=== PATIENT | female | born 1970 | race American Indian/Alaskan Native ===

== ENCOUNTER 2016-10-12 17:21 | Inpatient (IN) | payer MEDICARE, OTHER ==
[2016-10-12] MEDS ORDERED: Albuterol-Ipratrop 3 mg / 0.5 (3 ml) UD ONE ×2 (17:37→18:47)
[2016-10-12] MEDS ORDERED: Albuterol-Ipratrop 3 mg / 0.5 (3 ml) UD INH STA (17:48)
[2016-10-12] MEDS: Albuterol-Ipratrop 3 mg / 0.5 (3 ml) UD IH SCH ×2 (18:40→18:56)
[2016-10-12 18:44] LABS: BASO # 0.2 K/uL (0.0-0.2); BASO % 0.9 % (0.0-2.0); EOS % 0.1 % (0.0-4.0); HEMATOCRIT 39.4 % (34.0-47.0); LYMPH # 4.4 K/uL (1.0-4.3); LYMPH % 24.3 % (20.0-40.0); MEAN CORPUSCULAR HEMOGLOBIN 31.9 pg (27.0-31.0); MEAN CORPUSCULAR HGB CONC 33.9 g/dL (33.0-37.0); MEAN PLATELET VOLUME 7.6 fL (7.2-11.7); MONO # 0.4 K/uL (0.0-0.8); MONO % 2.3 % (0.0-10.0); RED CELL DISTRIBUTION WIDTH 13.8 % (11.5-14.5); WHITE BLOOD COUNT 18.2 K/uL (4.8-10.8)
[2016-10-12 18:57] LABS: CHLORIDE 102 mmol/L (98-107)
[2016-10-12 18:58] LABS: POTASSIUM 3.4 mmol/L (3.6-5.2); SODIUM 138 mmol/L (132-148)
[2016-10-12 18:59] LABS: AST/SGOT 19 U/L (14-36); BILIRUBIN,TOTAL 0.5 mg/dL (0.2-1.3); CARBON DIOXIDE 26 mmol/L (22-30); GFR AFRICAN-AMERICAN > 60
[2016-10-12 19:00] LABS: ALB/GLOB RATIO 1.5 (1.0-2.1); ALKALINE PHOSPHATASE 75 U/L (38-126); ALT/SGPT 24 U/L (9-52); BLOOD UREA NITROGEN 11 mg/dL (7-17); CALCIUM 8.6 mg/dl (8.6-10.4); GLUCOSE,RANDOM 119 mg/dL (65-105); TOTAL PROTEIN 6.5 g/dL (6.3-8.3)
[2016-10-12] MEDS ORDERED: Magnesium Sulfate 1 gm in D5W 1 GM/100 ML BAG IVPB STA (20:05)
--- NOTE | 2016-10-12 20:16 | C.PDOC ---
Time Seen by Provider: 10/12/16 18:28 Chief Complaint (Nursing): Shortness Of Breath History Per: Patient Onset/Duration Of Symptoms: Days (few) Current Symptoms Are (Timing): Still Present Exacerbating Factor(s): Coughing Current Respiratory Medications: See Home Med List Severity: Moderate Associated Symptoms: Productive Cough Reports Recently: Treated By A Physician Additional History Per: Prior Records Past Medical History Reviewed: Historical Data, Nursing Documentation, Vital Signs Vital Signs: Last Vital Signs Temp 98 F 10/12/16 17:39 Pulse 73 10/12/16 18:40 Resp 22 10/12/16 18:52 BP 118/76 10/12/16 17:39 Pulse Ox 100 10/12/16 20:16 - Medical History PMH: Asthma, Bronchitis Family History: States: Unknown Family Hx - Social History Hx Tobacco Use: Yes Hx Alcohol Use: Yes Hx Substance Use: No - Immunization History Hx Tetanus Toxoid Vaccination: No Hx Influenza Vaccination: No Hx Pneumococcal Vaccination: Yes Review Of Systems Except As Marked, All Systems Reviewed And Found Negative. Constitutional: Negative for: Fever Cardiovascular: Positive for: Chest Pain (upon coughing) Respiratory: Positive for: Cough, Shortness of Breath, Sputum, Wheezing Gastrointestinal: Negative for: Vomiting, Abdominal Pain Musculoskeletal: Negative for: Neck Pain, Back Pain, Leg Pain Skin: Negative for: Rash Neurological: Negative for: Weakness, Numbness, Seizures, Altered Mental Status Physical Exam - Physical Exam Appears: In Acute Distress (mild) Skin: Normal Color, Warm, Dry, No Rash Head: Atraumatic, Normacephalic Eye(s): bilateral: PERRL, EOMI Neck: Normal ROM, Supple Cardiovascular: Rhythm Regular Respiratory: No Accessory Muscle Use, Wheezing Gastrointestinal/Abdominal: Soft, No Tenderness Back: No CVA Tenderness Extremity: Normal ROM, No Pedal Edema, No Calf Tenderness Neurological/Psych: Oriented x3, Normal Motor, Normal Sensation ED Course And Treatment - Laboratory Results Result Diagrams: 10/12/16 18:38 10/12/16 18:38 Interpretation Of Abnormal: Leukocytosis, otherwise unremarkable Urine POC: Negative ECG: Interpreted By Me, Viewed By Me ECG Rhythm: Sinus Rhythm, Nonspecific Changes Rate From EC O2 Sat by Pulse Oximetry: 100 Pulse Ox Interpretation: Normal - Radiology CXR: Interpreted by Me, Viewed By Me CXR Interpretation: Yes: No Acute Disease Progress Note: Pt is no longer in any respiratory distress, but still SOB and wheezing. Reassessment Condition: Improved Progress - Interventions Interventions:: Observation, Oxygen - Medications Administered Inhaled nebulized: Anticholinergic, Beta-2 agonist Intravenous: Corticosteroid - Data Reviewed Data Reviewed: Lab, Diagnostic imaging, EKG, Old records - Patient Status Patient status: Partially improved - Critical Care Citical Care: Excluding Proc Time Critical Care Time: 45 minutes - Continuity of Care Discussed patient case with:: Patient, ED Nurse, PMD Disposition Discussed With : David Ambrose Comment: He accepted pt on his service. Doctor Will See Patient In The: Hospital Counseled Patient/Family Regarding: Studies Performed, Diagnosis, Smoking Cessation - Disposition Disposition: HOSPITALIZED Disposition Time: 20:32 Condition: FAIR - Clinical Impression Clinical Impression: Status asthmaticus
[2016-10-12] MEDS ORDERED: Magnesium Sulfate 1 gm in D5W 1 GM/100 ML BAG IVPB ONE (20:26)
[2016-10-12] MEDS ORDERED: Azithromycin 500mg/250ML NS 500 MG/250 ML BAG IVPB STA (20:32)
--- NOTE | 2016-10-12 20:37 | RAD ---
PROCEDURE: CHEST RADIOGRAPH, 1 VIEW HISTORY: SOB COMPARISON: 02/23/2016 FINDINGS: LUNGS: Mild venous congestion. PLEURA: No pneumothorax or pleural fluid seen. CARDIOVASCULAR: Normal. OSSEOUS STRUCTURES: No significant abnormalities. VISUALIZED UPPER ABDOMEN: Normal. OTHER FINDINGS: None. IMPRESSION: Mild venous congestion.
[2016-10-12] MEDS ORDERED: Albuterol 0.083% Inhal Sol (2.5 mg/3 mL) UD IH PRN (22:54)
[2016-10-13] MEDS ORDERED: Fluticasone-Salmeterol 250-50mcg Diskus INH SCH (08:00)
[2016-10-13] MEDS: Azithromycin 500 MG in Sodium Chloride 0.9% 250 ML IVPB SCH (10:00)
[2016-10-13] MEDS: Enoxaparin 40 mg Syringe SC SCH (11:14)
[2016-10-13] MEDS: Oxycodone/Acetaminophen 5/325 mg Tab PO PRN ×2 (11:15→18:03)
[2016-10-13] MEDS ORDERED: Albuterol 0.083% Inhal Sol (2.5 mg/3 mL) UD IH SCH (12:00)
[2016-10-13] MEDS ORDERED: Promethazine/Cod 6.25mg-10mg/5ml Syr UD PO PRN (12:10)
--- NOTE | 2016-10-13 13:11 | CP.PCM.HP ---
History of Present Illness - History of Present Illness History of Present Illness: Cheif complain: cough , shortness of breath x 1 week HPI: young AA female with h/o avascular necrosisi of hip, HTN, bronchial asthama , came in with c/o cough, congestion, shortness of breath , thick sputum. Pt acme in my office and she was having respiratory distress so i admitted her in pateint Present on Admission - Present on Admission Any Indicators Present on Admission: No Past Patient History - Past Medical History & Family History Past Medical History?: Yes - Past Social History Smoking Status: Current Some Days Smoker - CARDIAC Hx Cardiac Disorders: No - PULMONARY Hx Respiratory Disorders: Yes Hx Asthma: Yes Hx Bronchitis: Yes - NEUROLOGICAL Hx Neurological Disorder: No - HEENT Hx HEENT Problems: No Other/Comment: uses eyeglasses - RENAL Hx Chronic Kidney Disease: No - ENDOCRINE/METABOLIC Hx Endocrine Disorders: No - HEMATOLOGICAL/ONCOLOGICAL Hx Blood Disorders: No - INTEGUMENTARY Hx Dermatological Problems: No - MUSCULOSKELETAL/RHEUMATOLOGICAL Hx Musculoskeletal Disorders: No Hx Falls: No - GASTROINTESTINAL Hx Gastrointestinal Disorders: No - GENITOURINARY/GYNECOLOGICAL Hx Genitourinary Disorders: No - PSYCHIATRIC Hx Psychophysiologic Disorder: No Hx Substance Use: No - SURGICAL HISTORY Hx Surgeries: Yes Hx Section: Yes Hx Orthopedic Surgery: Yes (LEFT THR) - ANESTHESIA Hx Anesthesia: Yes Hx Anesthesia Reactions: No Hx Malignant Hyperthermia: No Meds Home Medications: Home Medication List Medication Instructions Recorded Confirmed Type Amoxicillin/Clavulanate [Augmentin 1 tab PO BID #10 tab 10/17/16 Rx 875 MG-125 MG] Fluticasone Nasal [Flonase] 1 spr NS DAILY #1 spr 10/17/16 Rx Methylprednisolone [Medrol Dose 4 mg PO DAILY #21 mg 10/17/16 Rx Pack (21 tabs)] Allergies/Adverse Reactions: Allergies Allergy/AdvReac Type Severity Reaction Status Date / Time pantoprazole sodium Allergy Verified 02/23/16 16:47 [From Protonix] shellfish derived Allergy Verified 02/23/16 16:47 Physical Exam - Constitutional Appears: In Acute Distress Additional comments: moderate resp distress - Head Exam Additional comments: nasal congestion [place] - Eye Exam Eye Exam: EOMI, Normal appearance, PERRL Pupil Exam: NORMAL ACCOMODATION, PERRL - Respiratory Exam Respiratory Exam: Rhonchi, Wheezes - Cardiovascular Exam Cardiovascular Exam: REGULAR RHYTHM, +S1, +S2 - GI/Abdominal Exam GI & Abdominal Exam: Normal Bowel Sounds, Soft. absent: Tenderness Results - Vital Signs Recent Vital Signs: Last Vital Signs Temp 98.4 F 10/13/16 08:18 Pulse 77 10/13/16 08:18 Resp 20 10/13/16 08:18 BP 132/90 10/13/16 08:18 Pulse Ox 99 10/13/16 08:18 - Labs Result Diagrams: 10/17/16 07:24 10/17/16 07:24 Assessment & Plan (1) COPD exacerbation Status: Acute (2) Exacerbation of asthma Status: Acute Priority: High (3) Sinusitis Status: Acute
--- NOTE | 2016-10-13 18:28 | CARD ---
APPROVED REPORT EKG Measurement Heart [id number] <Conclusion> Normal sinus rhythm Minimal voltage criteria for LVH, may be normal variant Borderline ECG
[2016-10-13] MEDS: Albuterol-Ipratrop 3 mg / 0.5 (3 ml) UD INH SCH (20:02)
--- NOTE | 2016-10-13 23:57 | CP.PCM.PN ---
Subjective - Date & Time of Evaluation Date of Evaluation: 10/13/16 Time of Evaluation: 12:06 - Subjective Subjective: seen and examined, is coughing and wheezing but she feels better, less short of breath Objective - Vital Signs/Intake and Output Vital Signs (last 24 hours): Temp Pulse Resp BP Pulse Ox 98.1 F 56 L 20 161/78 H 97 10/13/16 19:14 10/13/16 22:00 10/13/16 19:14 10/13/16 22:00 10/13/16 19:14 Intake and Output: 10/13/16 10/14/16 18:59 06:59 Intake Total 500 400 Balance 500 400 - Medications Medications: Current Medications Albuterol/Ipratropium (Duoneb 3 Mg/0.5 Mg (3 Ml) Ud) 3 ml INH RQ6 [facility] Last Admin: 10/13/16 20:02 Dose: 3 ml Enoxaparin Sodium (Lovenox) 40 mg SC DAILY [facility] Last Admin: 10/13/16 11:14 Dose: 40 mg Famotidine (Pepcid) 20 mg PO DAILY [facility] Last Admin: 10/13/16 13:43 Dose: 20 mg Guaifenesin (Robitussin) 200 mg PO Q4H PRN PRN Reason: Cough and congestion Azithromycin 500 mg/ Sodium (Chloride) 250 mls @ 250 mls/hr IVPB DAILY [facility] Last Admin: 10/13/16 10:00 Dose: 250 mls/hr Methylprednisolone (Solu-Medrol) 60 mg IV Q12 [facility] Last Admin: 10/13/16 22:05 Dose: 60 mg Montelukast Sodium (Singulair) 10 mg PO HS [facility] Last Admin: 10/13/16 22:05 Dose: 10 mg Nicotine (Nicoderm Cq) 1 patch TD DAILY [facility] Last Admin: 10/13/16 13:43 Dose: 1 patch Oxycodone/Acetaminophen (Percocet 5/325 Mg Tab) 1 tab PO QID PRN PRN Reason: Pain Stop: 10/15/16 22:55 Last Admin: 10/13/16 18:03 Dose: 1 tab Fluticasone/Salmeterol (Advair Diskus 250/50) 1 puff INH RQ12 [facility] Sennosides (Senokot Tab) 8.6 mg PO DAILY [facility] Last Admin: 10/13/16 11:14 Dose: 8.6 mg Zolpidem Tartrate (Ambien) 5 mg PO HS PRN PRN Reason: Insomnia Last Admin: 10/13/16 23:02 Dose: 5 mg - Constitutional Appears: Well - Head Exam Head Exam: ATRAUMATIC, NORMAL INSPECTION, NORMOCEPHALIC - Eye Exam Eye Exam: EOMI, Normal appearance - Respiratory Exam Respiratory Exam: Decreased Breath Sounds, Wheezes - Cardiovascular Exam Cardiovascular Exam: REGULAR RHYTHM, +S1, +S2. absent: Murmur - GI/Abdominal Exam GI & Abdominal Exam: Soft, Normal Bowel Sounds. absent: Tenderness Assessment and Plan (1) COPD exacerbation Status: Acute (2) Exacerbation of asthma Assessment & Plan: nebulizer advair salmadrol antitussives monitor pt Status: Acute
[2016-10-14] MEDS: Albuterol-Ipratrop 3 mg / 0.5 (3 ml) UD INH SCH ×4 (06:15→19:15)
[2016-10-14] MEDS: guaiFENesin 200 mg/10 ml Syrup UD PO PRN ×2 (10:47→17:01)
[2016-10-14] MEDS: Enoxaparin 40 mg Syringe SC SCH (10:48)
[2016-10-14] MEDS: Azithromycin 500 MG in Sodium Chloride 0.9% 250 ML IVPB SCH (10:50)
[2016-10-14] MEDS: Oxycodone/Acetaminophen 5/325 mg Tab PO PRN (21:56)
[2016-10-14] MEDS: guaiFENesin 600 mg ER Tab PO SCH (22:26)
--- NOTE | 2016-10-14 22:48 | CP.PCM.PN ---
Subjective - Date & Time of Evaluation Date of Evaluation: 10/14/16 Time of Evaluation: 12:07 - Subjective Subjective: Pt still coughing and congested, pt is on medical treatment Ct sinuses ordered to rule out sinusitis Objective - Vital Signs/Intake and Output Vital Signs (last 24 hours): Temp Pulse Resp BP Pulse Ox 97.9 F 66 20 165/70 H 98 10/14/16 16:00 10/14/16 16:00 10/14/16 16:00 10/14/16 16:00 10/14/16 16:00 - Medications Medications: Current Medications Albuterol/Ipratropium (Duoneb 3 Mg/0.5 Mg (3 Ml) Ud) 3 ml INH RQ6 [facility] Last Admin: 10/14/16 19:15 Dose: 3 ml Enoxaparin Sodium (Lovenox) 40 mg SC DAILY [facility] Last Admin: 10/14/16 10:48 Dose: 40 mg Famotidine (Pepcid) 20 mg PO DAILY [facility] Last Admin: 10/14/16 10:48 Dose: 20 mg Guaifenesin (Robitussin) 200 mg PO Q4H PRN PRN Reason: Cough and congestion Last Admin: 10/14/16 17:01 Dose: 200 mg Guaifenesin (Mucinex La) 600 mg PO BID [facility] Last Admin: 10/14/16 22:26 Dose: 600 mg Azithromycin 500 mg/ Sodium (Chloride) 250 mls @ 250 mls/hr IVPB DAILY [facility] Last Admin: 10/14/16 10:50 Dose: 250 mls/hr Methylprednisolone (Solu-Medrol) 60 mg IV Q12 [facility] Last Admin: 10/14/16 21:55 Dose: 60 mg Montelukast Sodium (Singulair) 10 mg PO HS [facility] Last Admin: 10/14/16 21:55 Dose: 10 mg Nicotine (Nicoderm Cq) 1 patch TD DAILY [facility] Last Admin: 10/14/16 10:48 Dose: 1 patch Oxycodone/Acetaminophen (Percocet 5/325 Mg Tab) 1 tab PO QID PRN PRN Reason: Pain Stop: 10/15/16 22:55 Last Admin: 10/14/16 21:56 Dose: 1 tab Fluticasone/Salmeterol (Advair Diskus 250/50) 1 puff INH RQ12 [facility] Sennosides (Senokot Tab) 8.6 mg PO DAILY [facility] Last Admin: 10/14/16 10:48 Dose: 8.6 mg Zolpidem Tartrate (Ambien) 5 mg PO HS PRN PRN Reason: Insomnia Last Admin: 10/14/16 22:27 Dose: 5 mg - Constitutional Appears: No Acute Distress - Head Exam Head Exam: ATRAUMATIC, NORMAL INSPECTION, NORMOCEPHALIC - Eye Exam Eye Exam: EOMI, Normal appearance, PERRL Pupil Exam: NORMAL ACCOMODATION, PERRL - Respiratory Exam Respiratory Exam: Decreased Breath Sounds, Rales, Rhonchi - Cardiovascular Exam Cardiovascular Exam: +S1, +S2 - GI/Abdominal Exam GI & Abdominal Exam: Soft, Normal Bowel Sounds. absent: Tenderness Assessment and Plan (1) COPD exacerbation Status: Acute (2) Exacerbation of asthma Status: Acute (3) Sinusitis Assessment & Plan: nasal congestion post nasal drip Status: Acute
[2016-10-15] MEDS: Albuterol-Ipratrop 3 mg / 0.5 (3 ml) UD INH SCH ×4 (01:03→19:31)
[2016-10-15] MEDS: Enoxaparin 40 mg Syringe SC SCH (10:09)
[2016-10-15] MEDS: guaiFENesin 600 mg ER Tab PO SCH ×2 (10:10→17:24)
[2016-10-15] MEDS: Azithromycin 500 MG in Sodium Chloride 0.9% 250 ML IVPB SCH (10:10)
[2016-10-15] MEDS: Oxycodone/Acetaminophen 5/325 mg Tab PO PRN ×2 (10:13→17:22)
--- NOTE | 2016-10-15 10:30 | CT ---
PROCEDURE: CT SINUSES WITHOUT CONTRAST HISTORY: severe sinus pressure and head ache COMPARISON: 03/01/2016. TECHNIQUE: Contiguous axial CT images of the paranasal sinuses were obtained. Coronal and sagittal reformats were generated. Radiation dose: Total exam DLP = mGy-cm. This CT exam was performed using one or more of the following dose reduction techniques: Automated exposure control, adjustment of the mA and/or kV according to patient size, and/or use of iterative reconstruction technique. FINDINGS: FRONTAL SINUSES: Clear. ETHMOID SINUSES: Interval improvement and ethmoid air cell disease. SPHENOID SINUSES: Clear. MAXILLARY SINUSES: Resolution of acute maxillary sinusitis study apparent on the prior examination. SINUS DRAINAGE: Stable findings cornu complex disease bilaterally right greater than left. NASAL SEPTUM: No significant deviation. No destructive lesion. MASS: None. SKULL BASE: Unremarkable. TEMPORAL BONES: Middle ears and mastoid grossly unremarkable. OTHER FINDINGS: None. IMPRESSION: Resolution of maxillary sinus disease bilaterally. Interval improvement in previously identified ethmoid air cell disease. Stable 0 MU complex disease.
--- NOTE | 2016-10-15 22:54 | CP.PCM.PN ---
Subjective - Date & Time of Evaluation Date of Evaluation: 10/15/16 Time of Evaluation: 12:09 - Subjective Subjective: PT SEEN AND EXAMINED, IS LESS COUGHING AND WHEEZING Objective - Vital Signs/Intake and Output Vital Signs (last 24 hours): Temp Pulse Resp BP Pulse Ox 98.5 F 64 18 171/89 H 18 L 10/15/16 21:54 10/15/16 21:54 10/15/16 16:00 10/15/16 21:54 10/15/16 21:54 Intake and Output: 10/15/16 10/16/16 18:59 06:59 Intake Total 900 400 Balance 900 400 - Medications Medications: Current Medications Albuterol/Ipratropium (Duoneb 3 Mg/0.5 Mg (3 Ml) Ud) 3 ml INH RQ6 [facility] Last Admin: 10/15/16 19:31 Dose: 3 ml Enoxaparin Sodium (Lovenox) 40 mg SC DAILY [facility] Last Admin: 10/15/16 10:09 Dose: 40 mg Famotidine (Pepcid) 20 mg PO DAILY [facility] Last Admin: 10/15/16 10:10 Dose: 20 mg Guaifenesin (Robitussin) 200 mg PO Q4H PRN PRN Reason: Cough and congestion Last Admin: 10/14/16 17:01 Dose: 200 mg Guaifenesin (Mucinex La) 600 mg PO BID [facility] Last Admin: 10/15/16 17:24 Dose: 600 mg Azithromycin 500 mg/ Sodium (Chloride) 250 mls @ 250 mls/hr IVPB DAILY [facility] Last Admin: 10/15/16 10:10 Dose: 250 mls/hr Methylprednisolone (Solu-Medrol) 60 mg IV Q12 [facility] Last Admin: 10/15/16 21:49 Dose: 60 mg Montelukast Sodium (Singulair) 10 mg PO HS [facility] Last Admin: 10/15/16 21:48 Dose: 10 mg Nicotine (Nicoderm Cq) 1 patch TD DAILY [facility] Last Admin: 10/15/16 10:09 Dose: 1 patch Oxycodone/Acetaminophen (Percocet 5/325 Mg Tab) 1 tab PO QID PRN PRN Reason: Pain Stop: 10/15/16 22:55 Last Admin: 10/15/16 17:22 Dose: 1 tab Fluticasone/Salmeterol (Advair Diskus 250/50) 1 puff INH RQ12 [facility] Sennosides (Senokot Tab) 8.6 mg PO DAILY [facility] Last Admin: 10/15/16 10:10 Dose: 8.6 mg Zolpidem Tartrate (Ambien) 5 mg PO HS PRN PRN Reason: Insomnia Last Admin: 10/15/16 21:53 Dose: 5 mg - Constitutional Appears: No Acute Distress - Head Exam Head Exam: ATRAUMATIC, NORMAL INSPECTION, NORMOCEPHALIC - Eye Exam Eye Exam: EOMI, Normal appearance, PERRL Pupil Exam: NORMAL ACCOMODATION, PERRL - ENT Exam ENT Exam: Mucous Membranes Moist, Normal Exam - Respiratory Exam Respiratory Exam: Decreased Breath Sounds, Rales, Wheezes - Cardiovascular Exam Cardiovascular Exam: REGULAR RHYTHM, +S1, +S2. absent: Murmur Assessment and Plan (1) COPD exacerbation Status: Acute (2) Exacerbation of asthma Status: Acute (3) Sinusitis Status: Acute
[2016-10-16] MEDS: Albuterol-Ipratrop 3 mg / 0.5 (3 ml) UD INH SCH ×4 (06:25→20:19)
[2016-10-16 07:31] LABS: HEMATOCRIT 39.3 % (34.0-47.0); MEAN CELL VOLUME 94.7 fL (81.0-99.0); MEAN CORPUSCULAR HEMOGLOBIN 32.1 pg (27.0-31.0); MEAN CORPUSCULAR HGB CONC 33.9 g/dL (33.0-37.0); MEAN PLATELET VOLUME 8.3 fL (7.2-11.7); RED CELL DISTRIBUTION WIDTH 13.6 % (11.5-14.5); WHITE BLOOD COUNT 24.4 K/uL (4.8-10.8)
[2016-10-16 07:47] LABS: CHLORIDE 102 mmol/L (98-107); POTASSIUM 3.9 mmol/L (3.6-5.2); SODIUM 138 mmol/L (132-148)
[2016-10-16 07:50] LABS: BLOOD UREA NITROGEN 18 mg/dL (7-17); CALCIUM 8.5 mg/dl (8.6-10.4); CARBON DIOXIDE 26 mmol/L (22-30); GFR AFRICAN-AMERICAN > 60; GLUCOSE,RANDOM 110 mg/dL (65-105)
[2016-10-16] MEDS: Enoxaparin 40 mg Syringe SC SCH (09:54)
[2016-10-16] MEDS: guaiFENesin 600 mg ER Tab PO SCH ×2 (09:55→17:10)
[2016-10-16] MEDS: guaiFENesin 200 mg/10 ml Syrup UD PO PRN ×2 (09:55→21:41)
[2016-10-16] MEDS: Azithromycin 500 MG in Sodium Chloride 0.9% 250 ML IVPB SCH (09:55)
[2016-10-16] MEDS: Oxycodone/Acetaminophen 5/325 mg Tab PO PRN ×2 (13:27→21:42)
--- NOTE | 2016-10-16 23:30 | CP.PCM.PN ---
Subjective - Date & Time of Evaluation Date of Evaluation: 10/16/16 Time of Evaluation: 07:38 - Subjective Subjective: pt seen and examined, is less short of breath, still coughing and wheezing Objective - Vital Signs/Intake and Output Vital Signs (last 24 hours): Temp Pulse Resp BP Pulse Ox 97.9 F 71 20 144/76 97 10/16/16 15:39 10/16/16 15:39 10/16/16 15:39 10/16/16 15:39 10/16/16 15:39 - Medications Medications: Current Medications Albuterol/Ipratropium (Duoneb 3 Mg/0.5 Mg (3 Ml) Ud) 3 ml INH RQ6 [facility] Last Admin: 10/16/16 20:19 Dose: 3 ml Enoxaparin Sodium (Lovenox) 40 mg SC DAILY [facility] Last Admin: 10/16/16 09:54 Dose: 40 mg Famotidine (Pepcid) 20 mg PO DAILY [facility] Last Admin: 10/16/16 09:54 Dose: 20 mg Guaifenesin (Robitussin) 200 mg PO Q4H PRN PRN Reason: Cough and congestion Last Admin: 10/16/16 21:41 Dose: 200 mg Guaifenesin (Mucinex La) 600 mg PO BID [facility] Last Admin: 10/16/16 17:10 Dose: 600 mg Azithromycin 500 mg/ Sodium (Chloride) 250 mls @ 250 mls/hr IVPB DAILY [facility] Last Admin: 10/16/16 09:55 Dose: 250 mls/hr Ceftriaxone Sodium 1 gm/ (Sodium Chloride) 100 mls @ 100 mls/hr IVPB DAILY [facility] Last Admin: 10/16/16 18:30 Dose: 100 mls/hr Methylprednisolone (Solu-Medrol) 60 mg IV Q12 [facility] Last Admin: 10/16/16 21:42 Dose: 60 mg Montelukast Sodium (Singulair) 10 mg PO HS [facility] Last Admin: 10/16/16 21:41 Dose: 10 mg Nicotine (Nicoderm Cq) 1 patch TD DAILY [facility] Last Admin: 10/16/16 09:54 Dose: 1 patch Oxycodone/Acetaminophen (Percocet 5/325 Mg Tab) 1 tab PO Q6H PRN PRN Reason: Pain, severe (8-10) Stop: 10/19/16 12:46 Last Admin: 10/16/16 21:42 Dose: 1 tab Fluticasone/Salmeterol (Advair Diskus 250/50) 1 puff INH RQ12 [facility] Last Admin: 10/16/16 09:35 Dose: 1 puff Sennosides (Senokot Tab) 8.6 mg PO DAILY [facility] Last Admin: 10/16/16 09:54 Dose: 8.6 mg Zolpidem Tartrate (Ambien) 5 mg PO HS PRN PRN Reason: Insomnia Last Admin: 10/16/16 22:53 Dose: 5 mg - Labs Labs: 10/16/16 07:11 10/16/16 07:11 - Constitutional Appears: No Acute Distress - Head Exam Head Exam: ATRAUMATIC, NORMAL INSPECTION, NORMOCEPHALIC - Eye Exam Eye Exam: EOMI, Normal appearance, PERRL Pupil Exam: NORMAL ACCOMODATION, PERRL - Respiratory Exam Respiratory Exam: Decreased Breath Sounds, Rhonchi - Cardiovascular Exam Cardiovascular Exam: REGULAR RHYTHM, +S1, +S2. absent: Murmur - GI/Abdominal Exam GI & Abdominal Exam: Soft, Normal Bowel Sounds. absent: Tenderness - Neurological Exam Neurological Exam: Alert, Awake, CN II-XII Intact, Normal Gait, Oriented x3 - Psychiatric Exam Psychiatric exam: Normal Affect, Normal Mood Assessment and Plan (1) COPD exacerbation Status: Acute (2) Exacerbation of asthma Status: Acute (3) Sinusitis Status: Acute
[2016-10-17] MEDS: Albuterol-Ipratrop 3 mg / 0.5 (3 ml) UD INH SCH ×2 (06:13→08:48)
[2016-10-17 07:59] LABS: CHLORIDE 102 mmol/L (98-107); SODIUM 138 mmol/L (132-148)
[2016-10-17 08:02] LABS: GFR AFRICAN-AMERICAN > 60
[2016-10-17 08:03] LABS: BLOOD UREA NITROGEN 20 mg/dL (7-17); CALCIUM 8.4 mg/dl (8.6-10.4); CARBON DIOXIDE 27 mmol/L (22-30); GLUCOSE,RANDOM 104 mg/dL (65-105)
[2016-10-17 08:04] LABS: BASO # 0.1 K/uL (0.0-0.2); BASO % 0.2 % (0.0-2.0); HEMATOCRIT 40.4 % (34.0-47.0); LYMPH # 4.4 K/uL (1.0-4.3); LYMPH % 17.1 % (20.0-40.0); MEAN CELL VOLUME 93.9 fL (81.0-99.0); MEAN CORPUSCULAR HEMOGLOBIN 31.9 pg (27.0-31.0); MEAN PLATELET VOLUME 7.9 fL (7.2-11.7); MONO % 7.9 % (0.0-10.0); NRBC % 0.1 % (0.0-2.0); RED CELL DISTRIBUTION WIDTH 13.8 % (11.5-14.5); WHITE BLOOD COUNT 25.5 K/uL (4.8-10.8)
[2016-10-17] MEDS: guaiFENesin 600 mg ER Tab PO SCH (09:43)
[2016-10-17] MEDS: Enoxaparin 40 mg Syringe SC SCH (09:43)
[2016-10-17] MEDS: Oxycodone/Acetaminophen 5/325 mg Tab PO PRN (09:49)
[2016-10-17] MEDS ORDERED: MethylPREDNISolone 40 mg Vial IV SCH (10:00)
--- NOTE | 2016-10-17 12:01 | CP.PCM.PN ---
Subjective - Date & Time of Evaluation Date of Evaluation: 10/17/16 Time of Evaluation: 07:39 - Subjective Subjective: pt seen and examined, is less short of breath, still coughing and wheezing Objective - Vital Signs/Intake and Output Vital Signs (last 24 hours): Temp Pulse Resp BP Pulse Ox 97.7 F 57 L 18 169/86 H 95 10/17/16 00:28 10/17/16 00:28 10/17/16 00:28 10/17/16 00:28 10/17/16 00:28 Intake and Output: 10/17/16 10/17/16 06:59 18:59 Intake Total 600 Balance 600 - Medications Medications: Current Medications Albuterol/Ipratropium (Duoneb 3 Mg/0.5 Mg (3 Ml) Ud) 3 ml INH RQ6 [facility] Last Admin: 10/17/16 08:48 Dose: 3 ml Enoxaparin Sodium (Lovenox) 40 mg SC DAILY [facility] Last Admin: 10/17/16 09:43 Dose: 40 mg Famotidine (Pepcid) 20 mg PO DAILY [facility] Last Admin: 10/17/16 09:43 Dose: 20 mg Guaifenesin (Robitussin) 200 mg PO Q4H PRN PRN Reason: Cough and congestion Last Admin: 10/16/16 21:41 Dose: 200 mg Guaifenesin (Mucinex La) 600 mg PO BID [facility] Last Admin: 10/17/16 09:43 Dose: 600 mg Azithromycin 500 mg/ Sodium (Chloride) 250 mls @ 250 mls/hr IVPB DAILY [facility] Last Admin: 10/16/16 09:55 Dose: 250 mls/hr Ceftriaxone Sodium 1 gm/ (Sodium Chloride) 100 mls @ 100 mls/hr IVPB DAILY [facility] Last Admin: 10/17/16 09:42 Dose: 100 mls/hr Methylprednisolone (Solu-Medrol) 60 mg IV DAILY [facility] Last Admin: 10/17/16 10:05 Dose: 60 mg Montelukast Sodium (Singulair) 10 mg PO HS [facility] Last Admin: 10/16/16 21:41 Dose: 10 mg Nicotine (Nicoderm Cq) 1 patch TD DAILY [facility] Last Admin: 10/17/16 09:44 Dose: 1 patch Oxycodone/Acetaminophen (Percocet 5/325 Mg Tab) 1 tab PO Q6H PRN PRN Reason: Pain, severe (8-10) Stop: 10/19/16 12:46 Last Admin: 10/17/16 09:49 Dose: 1 tab Fluticasone/Salmeterol (Advair Diskus 250/50) 1 puff INH RQ12 [facility] Last Admin: 10/16/16 09:35 Dose: 1 puff Sennosides (Senokot Tab) 8.6 mg PO DAILY [facility] Last Admin: 10/17/16 09:43 Dose: 8.6 mg Zolpidem Tartrate (Ambien) 5 mg PO HS PRN PRN Reason: Insomnia Last Admin: 10/16/16 22:53 Dose: 5 mg - Labs Labs: 10/17/16 07:24 10/17/16 07:24 - Constitutional Appears: No Acute Distress - Head Exam Head Exam: ATRAUMATIC, NORMAL INSPECTION, NORMOCEPHALIC - Eye Exam Eye Exam: EOMI, Normal appearance, PERRL Pupil Exam: NORMAL ACCOMODATION, PERRL - Respiratory Exam Respiratory Exam: Decreased Breath Sounds, Rales, Wheezes - Cardiovascular Exam Cardiovascular Exam: REGULAR RHYTHM, +S1, +S2. absent: Murmur - GI/Abdominal Exam GI & Abdominal Exam: Soft, Normal Bowel Sounds. absent: Tenderness - Neurological Exam Neurological Exam: Alert, Awake, CN II-XII Intact, Normal Gait, Oriented x3 - Psychiatric Exam Psychiatric exam: Normal Affect, Normal Mood - Skin Skin Exam: Dry, Intact, Normal Color, Warm Assessment and Plan (1) COPD exacerbation Status: Acute (2) Exacerbation of asthma Status: Acute (3) Sinusitis Status: Acute
[2016-10-17 16:33] VITALS: BP 166/89; PULSE 68; RESP 16; TEMP 97.9; O2SAT 97
--- NOTE | 2016-10-23 00:55 | CP.PCM.DIS ---
Provider - Provider Date of Admission: 10/14/16 16:42 Attending physician: David Ambrose MD Diagnosis - Discharge Diagnosis (1) COPD exacerbation Status: Acute (2) Exacerbation of asthma Status: Acute Priority: High (3) Sinusitis Status: Acute Hospital Course - Lab Results Lab Results: Most Recent Lab Values WBC 25.5 K/uL (4.8-10.8) H 10/17/16 07:24 RBC 4.31 Mil/uL (3.80-5.20) 10/17/16 07:24 Hgb 13.8 g/dL (11.0-16.0) 10/17/16 07:24 Hct 40.4 % (34.0-47.0) 10/17/16 07:24 MCV 93.9 fL (81.0-99.0) 10/17/16 07:24 MCH 31.9 pg (27.0-31.0) H 10/17/16 07:24 MCHC 34.0 g/dL (33.0-37.0) 10/17/16 07:24 RDW 13.8 % (11.5-14.5) 10/17/16 07:24 Plt Count 365 K/uL (130-400) 10/17/16 07:24 MPV 7.9 fL (7.2-11.7) 10/17/16 07:24 Neut % (Auto) 74.8 % (50.0-75.0) 10/17/16 07:24 Lymph % (Auto) 17.1 % (20.0-40.0) L 10/17/16 07:24 [place] % (Auto) 7.9 % (0.0-10.0) 10/17/16 07:24 Eos % (Auto) 0.0 % (0.0-4.0) 10/17/16 07:24 Baso % (Auto) 0.2 % (0.0-2.0) 10/17/16 07:24 Neut # 19.1 K/uL (1.8-7.0) H 10/17/16 07:24 Lymph # 4.4 K/uL (1.0-4.3) H 10/17/16 07:24 [place] # 2.0 K/uL (0.0-0.8) H 10/17/16 07:24 Eos # 0.0 K/uL (0.0-0.7) 10/17/16 07:24 Baso # 0.1 K/uL (0.0-0.2) 10/17/16 07:24 Sodium 138 mmol/L (132-148) 10/17/16 07:24 Potassium 4.0 mmol/L (3.6-5.2) 10/17/16 07:24 Chloride 102 mmol/L (98-107) 10/17/16 07:24 Carbon Dioxide 27 mmol/L (22-30) 10/17/16 07:24 Anion Gap 13 (10-20) 10/17/16 07:24 BUN 20 mg/dL (7-17) H 10/17/16 07:24 Creatinine 0.9 MG/DL (0.7-1.2) 10/17/16 07:24 Est GFR ( Amer) > 60 10/17/16 07:24 Est GFR (Non-Af Amer) > 60 10/17/16 07:24 Random Glucose 104 mg/dL (65-105) 10/17/16 07:24 Calcium 8.4 mg/dl (8.6-10.4) L 10/17/16 07:24 Total Bilirubin 0.5 mg/dL (0.2-1.3) 10/12/16 18:38 AST 19 U/L (14-36) 10/12/16 18:38 ALT 24 U/L (9-52) 10/12/16 18:38 Alkaline Phosphatase 75 U/L (38-126) 10/12/16 18:38 Troponin I < 0.0120 ng/mL (0.00-0.120) 10/12/16 18:38 NT-Pro-B Natriuret Pep 119 pg/mL (0-450) 10/12/16 18:38 Total Protein 6.5 g/dL (6.3-8.3) 10/12/16 18:38 Albumin 3.9 g/dL (3.5-5.0) 10/12/16 18:38 Globulin 2.6 gm/dL (2.2-3.9) 10/12/16 18:38 Albumin/Globulin Ratio 1.5 (1.0-2.1) 10/12/16 18:38 Urine HCG, Qual Negative (NEGATIVE) 10/12/16 18:54 Discharge Exam - Head Exam Head Exam: ATRAUMATIC, NORMAL INSPECTION, NORMOCEPHALIC - Eye Exam Eye Exam: EOMI, Normal appearance, PERRL Pupil Exam: NORMAL ACCOMODATION, PERRL - ENT Exam ENT Exam: Mucous Membranes Moist - Respiratory Exam Respiratory Exam: Decreased Breath Sounds, Wheezes - Cardiovascular Exam Cardiovascular Exam: +S1, +S2 Discharge Plan - Discharge Medications Prescriptions: Amoxicillin/Clavulanate [Augmentin 875 MG-125 MG] 1 tab PO BID #10 tab Fluticasone Nasal [Flonase] 1 spr NS DAILY #1 spr Methylprednisolone [Medrol Dose Pack (21 tabs)] 4 mg PO DAILY #21 mg - Follow Up Plan Condition: GOOD Disposition: HOME/ ROUTINE Instructions: Osteoarthritis (DC), COPD (Chronic Obstructive Pulmonary Disease ) (DC), Anxiety (DC)
== END 2016-10-17 14:40 | disposition home or self-care (01) | DRG 191 ==
LOC: C.ER 17:21 → C.9E 20:34 → C.3T 21:21 → C.5T 10-13 18:29 → OBSVTOIN 10-14 16:42
PROVIDERS: ADMIT Internal Medicine; ATTEND Internal Medicine
DX: J44.1 Chronic obstructive pulmonary disease with (acute) exacerbation (principal); J45.901 Unspecified asthma with (acute) exacerbation; J01.90 Acute sinusitis, unspecified; I10 Essential (primary) hypertension; F17.210 Nicotine dependence, cigarettes, uncomplicated; Z96.642 Presence of left artificial hip joint

== ENCOUNTER 2017-01-17 16:03 | Inpatient (IN) | payer MEDICARE ==
[2017-01-17] MEDS ORDERED: Albuterol-Ipratrop 3 mg / 0.5 (3 ml) UD ONE ×3 (16:50→18:51)
[2017-01-17] MEDS ORDERED: Sodium Chloride 0.9% 1,000 ML IV ONE (18:09)
[2017-01-17] MEDS ORDERED: MethylPREDNISolone 40 mg Vial IVP STA (18:09)
--- NOTE | 2017-01-17 18:14 | C.PDOC ---
Chief Complaint (Nursing): Shortness Of Breath Past Medical History Vital Signs: Last Vital Signs Temp 99.3 F 01/17/17 16:17 Pulse 72 01/17/17 16:17 Resp 18 01/17/17 16:50 BP 129/87 01/17/17 16:17 Pulse Ox 94 L 01/17/17 16:17 - Medical History PMH: Asthma, Bronchitis Denies: Chronic Kidney Disease Family History: States: Unknown Family Hx - Social History Hx Tobacco Use: Yes Hx Alcohol Use: Yes (socially) Hx Substance Use: Yes - Immunization History Hx Tetanus Toxoid Vaccination: Yes Hx Influenza Vaccination: No Hx Pneumococcal Vaccination: Yes ED Course And Treatment O2 Sat by Pulse Oximetry: [address] Discuss[address].: David Ambrose Doctor Will See Patient In The: Hospital - Disposition Disposition Time: 18:14 Condition: STABLE Forms: [facility] (Latvian) - Clinical Impression Clinical Impression: Asthma with acute exacerbation Decision To Admit - Pt Status Changed To: Hospital Disposition Of: Observation - . Bed Request Type: Regular Admitting Physician: David Ambrose Patient Diagnosis: Asthma with acute exacerbation
--- NOTE | 2017-01-17 18:17 | C.PDOC ---
History Of Present Illness A 46 year old female, whose past medical history includes, asthma no intubation , anxiety, and osteoarthritis, presents to the emergency department with complaints of wheezing with chest tightness, which began [address] Ambrose seen patient and treated her with Tamiflu and prednisone for 4 days. The patient was re-evaluated [address] Ambrose and was injected with steroids. She still has no improvement and was recommended by her doctor to come to the emergency department. The patient denies any fever, chills, headaches, or any other symptoms at this time. Chief Complaint (Nursing): Shortness Of Breath History Per: Patient History/Exam Limitations: no limitations Onset/Duration Of Symptoms: Days (x 7 days ) Current Symptoms Are (Timing): Still Present Associated Symptoms: denies: Fever, Chills Past Medical History Vital Signs: Last Vital Signs Temp 99.3 F 01/17/17 16:17 Pulse 72 01/17/17 16:17 Resp 18 01/17/17 16:50 BP 129/87 01/17/17 16:17 Pulse Ox 94 L 01/17/17 18:43 - Medical History PMH: Asthma, Bronchitis Denies: Chronic Kidney Disease Family History: States: Unknown Family Hx - Social History Hx Tobacco Use: Yes Hx Alcohol Use: Yes (socially) Hx Substance Use: Yes - Immunization History Hx Tetanus Toxoid Vaccination: Yes Hx Influenza Vaccination: No Hx Pneumococcal Vaccination: Yes Review Of Systems Constitutional: Negative for: Fever, Chills Cardiovascular: Positive for: Other (chest tightness ) Respiratory: Positive for: Cough, Shortness of Breath, Wheezing. Negative for: Hemoptysis Gastrointestinal: Negative for: Abdominal Pain Neurological: Negative for: Weakness, Numbness Physical Exam - Physical Exam Appears: Non-toxic, No Acute Distress Skin: Normal Color, Warm, Dry Head: Atraumatic, Normacephalic Eye(s): bilateral: Normal Inspection, PERRL, EOMI Nose: Normal Oral Mucosa: Moist Neck: Normal, No Midline Cervical Tenderness, Supple Chest: No Deformity, No Tenderness Cardiovascular: Rhythm Regular, No Murmur Respiratory: Decreased Breath Sounds, Wheezing (in all cruz) Gastrointestinal/Abdominal: Bowel Sounds, Soft, No Tenderness Back: Normal Inspection Extremity: Normal ROM, No Calf Tenderness Neurological/Psych: Oriented x3, Normal Speech, Normal Cognition ED Course And Treatment - Laboratory Results Result Diagrams: 01/17/17 18:18 01/17/17 18:18 O2 Sat by Pulse Oximetry: 94 Medical Decision Making Medical Decision Making: Plan: -- Chest X-ray -- Nebulizer -- Labs -- IV Fluids, Prednisone, Magnesium Sulfate -- Urinalysis Progress Notes: Disposition Discussed With : David Ambrose Doctor Will See Patient In The: Hospital - Disposition Disposition Time: 18:43 Condition: STABLE Forms: [employer] (Uruguayan) - Clinical Impression Clinical Impression: Asthma with acute exacerbation - Scribe Statement The provider has reviewed the documentation as recorded by the Scribe Marva Mcadams All medical record entries made by the Scribe were at my direction and personally dictated by me. I have reviewed the chart and agree that the record accurately reflects my personal performance of the history, physical exam, medical decision making, and the department course for this patient. I have also personally directed, reviewed, and agree with the discharge instructions and disposition. Decision To Admit - Pt Status Changed To: Hospital Disposition Of: Observation - . Bed Request Type: Regular Admitting Physician: David Ambrose Patient Diagnosis: Asthma with acute exacerbation
[2017-01-17 18:24] LABS: BASO # 0.2 K/uL (0.0-0.2); BASO % 0.9 % (0.0-2.0); EOS # 0.6 K/uL (0.0-0.7); EOS % 2.7 % (0.0-4.0); HEMATOCRIT 38.7 % (34.0-47.0); LYMPH # 10.3 K/uL (1.0-4.3); LYMPH % 49.9 % (20.0-40.0); MEAN CELL VOLUME 95.7 fL (81.0-99.0); MEAN CORPUSCULAR HEMOGLOBIN 32.5 pg (27.0-31.0); MEAN CORPUSCULAR HGB CONC 33.9 g/dL (33.0-37.0); MEAN PLATELET VOLUME 7.8 fL (7.2-11.7); MONO # 1.3 K/uL (0.0-0.8); MONO % 6.3 % (0.0-10.0); RED CELL DISTRIBUTION WIDTH 13.7 % (11.5-14.5); WHITE BLOOD COUNT 20.7 K/uL (4.8-10.8)
[2017-01-17 18:33] LABS: CHLORIDE 105 mmol/L (98-107)
[2017-01-17 18:34] LABS: POTASSIUM 3.4 mmol/L (3.6-5.2); SODIUM 140 mmol/L (132-148)
[2017-01-17 18:37] LABS: ALB/GLOB RATIO 1.4 (1.0-2.1); ALKALINE PHOSPHATASE 76 U/L (38-126); ALT/SGPT 51 U/L (9-52); AST/SGOT 20 U/L (14-36); BILIRUBIN,TOTAL 0.6 mg/dL (0.2-1.3); BLOOD UREA NITROGEN 13 mg/dL (7-17); CALCIUM 8.8 mg/dl (8.6-10.4); CARBON DIOXIDE 26 mmol/L (22-30); GFR AFRICAN-AMERICAN > 60; GLUCOSE,RANDOM 67 mg/dL (65-105); TOTAL PROTEIN 6.1 g/dL (6.3-8.3)
[2017-01-17] MEDS ORDERED: Magnesium Sulfate 1 gm in D5W 1 GM/100 ML BAG IVPB ONE ×2 (18:37→19:22)
[2017-01-17] MEDS ORDERED: Sodium Chloride 0.9% 1,000 ML ONE (18:37)
[2017-01-17] MEDS: Magnesium Sulfate 1 gm in D5W 1 GM/100 ML BAG IVPB SCH ×2 (18:45→20:04)
[2017-01-17] MEDS ORDERED: Albuterol-Ipratrop 3 mg / 0.5 (3 ml) UD INH STA ×2 (18:46)
[2017-01-17 18:57] LABS: RBC URINE 5 /hpf (0-3); URINE BACTERIA RARE (<OCC); URINE BILIRUBIN NEGATIVE (NEGATIVE); URINE BLOOD 1+ (NEGATIVE); URINE COLOR Yellow (YELLOW); URINE GLUCOSE (UA) NORMAL (Normal); URINE KETONE NEGATIVE (NEGATIVE); URINE LEUKOCYTE ESTERASE NEG Leu/uL (Negative); URINE PROTEIN NEGATIVE (NEGATIVE); URINE UROBILINOGEN NORMAL mg/dL (0.2-1.0); WBC URINE < 1 /hpf (0-5)
[2017-01-17] MEDS: Oxycodone/Acetaminophen 5/325 mg Tab PO PRN (21:03)
[2017-01-17] MEDS: guaiFENesin 600 mg ER Tab PO SCH (22:19)
[2017-01-17] MEDS: Albuterol 0.083% Inhal Sol (2.5 mg/3 mL) UD INH SCH (23:30)
[2017-01-17] MEDS: Fluticasone-Salmeterol 250-50mcg Diskus INH SCH (23:32)
[2017-01-18 01:28] VITALS: RESP 20
[2017-01-18] MEDS: Albuterol 0.083% Inhal Sol (2.5 mg/3 mL) UD INH SCH ×4 (01:56→19:34)
[2017-01-18] MEDS: MethylPREDNISolone 40 mg Vial IVP SCH ×2 (06:04→17:27)
--- NOTE | 2017-01-18 06:21 | HP ---
CHIEF COMPLAINT: Shortness of breath and cough. HISTORY OF PRESENT ILLNESS: This is a 46-year-old well known to me with history of bronchial asthma. She is a chronic smoker, history of anxiety, osteoarthritis, insomnia, and hypertension. She is complaint with diet, medication and followup. She has been having one-week onset of cough, congestion, wheezing, and shortness of breath. She has received courses of prednisone, Tamiflu. Patient was reevaluated after 3 days. She continued to deteriorate and she was advised to be hospitalized. She is coughing. She has thick white sputum production, which is frothy associated with chills, rigors, tiredness, anorexia, malaise, and fatigue. She has dyspnea at rest. She is coughing. She is wheezing. She denies any fevers, chills. She denies any headache, nausea, vomiting. She denies any sneezing, itchy eyes, or itchy nose. She denies any history of polyuria, polydipsia, or polyphagia. She denies any history hematuria or pyuria. She denies any history of trauma, falls, or loss of consciousness. No seizure-like activity. ALLERGIES: NO KNOWN ALLERGIES. PAST MEDICAL HISTORY: Bronchial asthma. FAMILY HISTORY: Positive for DVT. SOCIAL HISTORY: Smokes. Denies drinking. CURRENT MEDICATIONS: She is on Flonase, Symbicort, DuoNeb, Percocet, Zantac, Singulair, and Amitiza. PHYSICAL EXAMINATION: GENERAL: A middle-aged female in [id number] respiratory distress. VITAL SIGNS: Blood pressure 125/74, pulse 54, respiratory rate 22 and temperature 98.4. SKIN: Warm. No bruises. No purpura. No petechiae. HEENT: Atraumatic and normocephalic. Negative pallor. Negative jaundice. Extraocular movements are intact. NECK: Supple. No JVD. No lymph node. No thyromegaly. LUNGS: Bilaterally inspiratory, expiratory rhonchi. CARDIOVASCULAR: S1 and S2 regular. No heave. No thrill. ABDOMEN: Soft. Nontender. Bowel sounds are positive. RECTAL: No masses. No bleed. EXTREMITIES: No clubbing, cyanosis or edema. CENTRAL NERVOUS SYSTEM: Awake, alert and oriented x3. ASSESSMENT: 1. Acute exacerbation of bronchial asthma. 2. Rule out tracheal bronchitis. 3. Osteoarthritis. PLAN: Admit detailed orders written. David Ambrose MD
[2017-01-18] MEDS: Fluticasone-Salmeterol 250-50mcg Diskus INH SCH ×2 (07:53→19:34)
--- NOTE | 2017-01-18 08:57 | RAD ---
HISTORY: SOB COMPARISON: Comparison is made to 10/12/2016 TECHNIQUE: Chest PA and lateral FINDINGS: LUNGS: No evidence of new infiltrate or consolidation in the lungs PLEURA: No significant pleural effusion identified. No pneumothorax apparent. CARDIOVASCULAR: Normal. OSSEOUS STRUCTURES: No significant abnormalities. VISUALIZED UPPER ABDOMEN: Normal. OTHER FINDINGS: None. IMPRESSION: No active disease.
[2017-01-18] MEDS: Enoxaparin 40 mg Syringe SC SCH (09:30)
[2017-01-18] MEDS: guaiFENesin 600 mg ER Tab PO SCH ×2 (09:31→17:27)
[2017-01-18] MEDS: Fluticasone Nasal 50 mcg/Spray NS SCH (10:07)
[2017-01-18] MEDS: Oxycodone/Acetaminophen 5/325 mg Tab PO PRN (16:41)
[2017-01-19] MEDS: Albuterol 0.083% Inhal Sol (2.5 mg/3 mL) UD INH SCH ×4 (01:47→19:08)
[2017-01-19] MEDS: MethylPREDNISolone 40 mg Vial IVP SCH ×2 (06:11→17:13)
[2017-01-19] MEDS: Fluticasone-Salmeterol 250-50mcg Diskus INH SCH ×2 (08:51→19:10)
[2017-01-19] MEDS: Enoxaparin 40 mg Syringe SC SCH (10:07)
[2017-01-19] MEDS: guaiFENesin 600 mg ER Tab PO SCH ×2 (10:07→17:13)
[2017-01-19] MEDS: Fluticasone Nasal 50 mcg/Spray NS SCH (10:07)
[2017-01-19] MEDS: Oxycodone/Acetaminophen 5/325 mg Tab PO PRN ×2 (10:12→21:55)
[2017-01-19] MEDS: Acetylcysteine 20% Inhal Soln (4ml) INH SCH ×2 (13:19→19:08)
[2017-01-19 13:59] LABS: BASO # 0.1 K/uL (0.0-0.2); BASO % 0.3 % (0.0-2.0); HEMATOCRIT 39.3 % (34.0-47.0); LYMPH # 3.2 K/uL (1.0-4.3); LYMPH % 14.6 % (20.0-40.0); MEAN CELL VOLUME 97.1 fL (81.0-99.0); MEAN CORPUSCULAR HEMOGLOBIN 31.7 pg (27.0-31.0); MEAN CORPUSCULAR HGB CONC 32.7 g/dL (33.0-37.0); MEAN PLATELET VOLUME 7.8 fL (7.2-11.7); MONO % 4.5 % (0.0-10.0); RED CELL DISTRIBUTION WIDTH 13.8 % (11.5-14.5); WHITE BLOOD COUNT 21.7 K/uL (4.8-10.8)
[2017-01-19 14:07] LABS: CHLORIDE 103 mmol/L (98-107); POTASSIUM 4.9 mmol/L (3.6-5.2); SODIUM 140 mmol/L (132-148)
[2017-01-19 14:09] LABS: CARBON DIOXIDE 24 mmol/L (22-30); GFR AFRICAN-AMERICAN > 60
[2017-01-19 14:10] LABS: BLOOD UREA NITROGEN 19 mg/dL (7-17); CALCIUM 9.4 mg/dl (8.6-10.4); GLUCOSE,RANDOM 126 mg/dL (65-105)
--- NOTE | 2017-01-20 00:13 | CP.PCM.PN ---
Subjective - Date & Time of Evaluation Date of Evaluation: 01/18/17 - Subjective Subjective: COUGH, CONGESTION SOB, NO FEVER Objective - Vital Signs/Intake and Output Vital Signs (last 24 hours): Temp Pulse Resp BP Pulse Ox 98.7 F 74 20 144/81 98 01/19/17 15:05 01/19/17 15:05 01/19/17 15:05 01/19/17 15:05 01/19/17 15:05 Intake and Output: 01/19/17 01/20/17 18:59 06:59 Intake Total 360 450 Balance 360 450 - Medications Medications: Current Medications Acetylcysteine (Acetylcysteine 20%) 4 ml INH RQ6 [facility] Stop: 01/20/17 02:01 Last Admin: 01/19/17 19:08 Dose: 4 ml Albuterol Sulfate (Albuterol 0.083% Inhal Emily (2.5 Mg/3 Ml) Ud) 2.5 mg INH RQ6 [facility] Last Admin: 01/19/17 19:08 Dose: 2.5 mg Diphenhydramine HCl (Benadryl) 25 mg PO Q8 PRN PRN Reason: Itching / Pruritus Last Admin: 01/19/17 13:11 Dose: 25 mg Docusate Sodium (Colace) 100 mg PO BID [facility] Last Admin: 01/19/17 17:13 Dose: 100 mg Enoxaparin Sodium (Lovenox) 40 mg SC DAILY [facility] Last Admin: 01/19/17 10:07 Dose: 40 mg Famotidine (Pepcid) 20 mg PO DAILY [facility] Last Admin: 01/19/17 10:07 Dose: 20 mg Fluticasone Propionate (Flonase) 1 spr NS DAILY [facility] Last Admin: 01/19/17 10:07 Dose: 1 spray Guaifenesin (Mucinex La) 600 mg PO BID [facility] Last Admin: 01/19/17 17:13 Dose: 600 mg Methylprednisolone (Solu-Medrol) 40 mg IVP Q12H [facility] Last Admin: 01/19/17 17:13 Dose: 40 mg Montelukast Sodium (Singulair) 10 mg PO HS [facility] Last Admin: 01/19/17 21:56 Dose: 10 mg Nicotine (Nicoderm Cq) 1 patch TD DAILY [facility] Last Admin: 01/19/17 10:07 Dose: 1 patch Oxycodone/Acetaminophen (Percocet 5/325 Mg Tab) 1 tab PO QID PRN PRN Reason: Pain Stop: 01/20/17 19:40 Last Admin: 01/19/17 21:55 Dose: 1 tab Fluticasone/Salmeterol (Advair Diskus 250/50) 1 puff INH RQ12 [facility] Last Admin: 01/19/17 19:10 Dose: 1 puff Sennosides (Senokot Tab) 8.6 mg PO DAILY [facility] Zolpidem Tartrate (Ambien) 5 mg PO HS PRN PRN Reason: Insomnia Last Admin: 01/19/17 22:44 Dose: 5 mg - Labs Labs: 01/19/17 13:47 01/19/17 13:47 - Constitutional Appears: Non-toxic, No Acute Distress - Head Exam Head Exam: ATRAUMATIC, NORMAL INSPECTION, NORMOCEPHALIC - Eye Exam Eye Exam: Normal appearance Pupil Exam: NORMAL ACCOMODATION - ENT Exam ENT Exam: Mucous Membranes Moist, Normal Exam, Normal Oropharynx - Respiratory Exam Respiratory Exam: Decreased Breath Sounds, Rhonchi, NORMAL BREATHING PATTERN - Cardiovascular Exam Cardiovascular Exam: REGULAR RHYTHM, +S1, +S2 - GI/Abdominal Exam GI & Abdominal Exam: Normal Bowel Sounds - Extremities Exam Extremities Exam: Normal Capillary Refill - Neurological Exam Neurological Exam: Alert, Awake, CN II-XII Intact, Normal Gait, Oriented x3 Assessment and Plan (1) Exacerbation of asthma Status: Acute (2) Low back pain Status: Chronic (3) Osteoarthritis Status: Chronic (4) Anxiety Status: Chronic
--- NOTE | 2017-01-20 00:15 | CP.PCM.PN ---
Subjective - Date & Time of Evaluation Date of Evaluation: 01/19/17 - Subjective Subjective: COUGH CONGESTION, LESS SOB, BACK PAIN, NO FEVER Objective - Vital Signs/Intake and Output Vital Signs (last 24 hours): Temp Pulse Resp BP Pulse Ox 98.7 F 74 20 144/81 98 01/19/17 15:05 01/19/17 15:05 01/19/17 15:05 01/19/17 15:05 01/19/17 15:05 Intake and Output: 01/19/17 01/20/17 18:59 06:59 Intake Total 360 450 Balance 360 450 - Medications Medications: Current Medications Acetylcysteine (Acetylcysteine 20%) 4 ml INH RQ6 [facility] Stop: 01/20/17 02:01 Last Admin: 01/19/17 19:08 Dose: 4 ml Albuterol Sulfate (Albuterol 0.083% Inhal Emily (2.5 Mg/3 Ml) Ud) 2.5 mg INH RQ6 [facility] Last Admin: 01/19/17 19:08 Dose: 2.5 mg Diphenhydramine HCl (Benadryl) 25 mg PO Q8 PRN PRN Reason: Itching / Pruritus Last Admin: 01/19/17 13:11 Dose: 25 mg Docusate Sodium (Colace) 100 mg PO BID [facility] Last Admin: 01/19/17 17:13 Dose: 100 mg Enoxaparin Sodium (Lovenox) 40 mg SC DAILY [facility] Last Admin: 01/19/17 10:07 Dose: 40 mg Famotidine (Pepcid) 20 mg PO DAILY [facility] Last Admin: 01/19/17 10:07 Dose: 20 mg Fluticasone Propionate (Flonase) 1 spr NS DAILY [facility] Last Admin: 01/19/17 10:07 Dose: 1 spray Guaifenesin (Mucinex La) 600 mg PO BID [facility] Last Admin: 01/19/17 17:13 Dose: 600 mg Methylprednisolone (Solu-Medrol) 40 mg IVP Q12H [facility] Last Admin: 01/19/17 17:13 Dose: 40 mg Montelukast Sodium (Singulair) 10 mg PO HS [facility] Last Admin: 01/19/17 21:56 Dose: 10 mg Nicotine (Nicoderm Cq) 1 patch TD DAILY [facility] Last Admin: 01/19/17 10:07 Dose: 1 patch Oxycodone/Acetaminophen (Percocet 5/325 Mg Tab) 1 tab PO QID PRN PRN Reason: Pain Stop: 01/20/17 19:40 Last Admin: 01/19/17 21:55 Dose: 1 tab Fluticasone/Salmeterol (Advair Diskus 250/50) 1 puff INH RQ12 [facility] Last Admin: 01/19/17 19:10 Dose: 1 puff Sennosides (Senokot Tab) 8.6 mg PO DAILY [facility] Zolpidem Tartrate (Ambien) 5 mg PO HS PRN PRN Reason: Insomnia Last Admin: 01/19/17 22:44 Dose: 5 mg - Labs Labs: 01/19/17 13:47 01/19/17 13:47 - Constitutional Appears: Non-toxic, No Acute Distress - Head Exam Head Exam: ATRAUMATIC, NORMAL INSPECTION, NORMOCEPHALIC - Eye Exam Eye Exam: EOMI, Normal appearance, PERRL Pupil Exam: NORMAL ACCOMODATION - ENT Exam ENT Exam: Mucous Membranes Moist, Normal Exam, Normal Oropharynx, TM's Normal Bilaterally - Respiratory Exam Respiratory Exam: Prolonged Expiratory Phase, Rhonchi, Wheezes - Cardiovascular Exam Cardiovascular Exam: REGULAR RHYTHM, +S1, +S2 - GI/Abdominal Exam GI & Abdominal Exam: Soft, Normal Bowel Sounds - Rectal Exam Rectal Exam: NORMAL INSPECTION - Extremities Exam Extremities Exam: Normal Capillary Refill - Neurological Exam Neurological Exam: Alert, Awake, CN II-XII Intact, Normal Gait, Oriented x3 Neuro motor strength exam: Left Upper Extremity: 5, Right Upper Extremity: 5, Left Lower Extremity: 5, Right Lower Extremity: 5 - Psychiatric Exam Psychiatric exam: Normal Affect, Normal Mood Assessment and Plan (1) Exacerbation of asthma Status: Acute (2) Low back pain Status: Chronic (3) Osteoarthritis Status: Chronic (4) Anxiety Status: Chronic
[2017-01-20] MEDS: Albuterol 0.083% Inhal Sol (2.5 mg/3 mL) UD INH SCH ×4 (01:34→19:29)
[2017-01-20] MEDS: Acetylcysteine 20% Inhal Soln (4ml) INH SCH (01:34)
[2017-01-20] MEDS: MethylPREDNISolone 40 mg Vial IVP SCH ×2 (05:18→17:14)
[2017-01-20] MEDS: Enoxaparin 40 mg Syringe SC SCH (10:34)
[2017-01-20] MEDS: guaiFENesin 600 mg ER Tab PO SCH ×2 (10:34→18:06)
[2017-01-20] MEDS: Fluticasone Nasal 50 mcg/Spray NS SCH (10:34)
[2017-01-20] MEDS: Oxycodone/Acetaminophen 5/325 mg Tab PO PRN (10:43)
[2017-01-20] MEDS: Fluticasone-Salmeterol 250-50mcg Diskus INH SCH ×2 (10:46→19:29)
--- NOTE | 2017-01-20 22:32 | CP.PCM.PN ---
Subjective - Subjective Subjective: LESS COUGH, LESS SOB Objective - Vital Signs/Intake and Output Vital Signs (last 24 hours): Temp Pulse Resp BP Pulse Ox 98.1 F 55 L 20 150/81 98 01/20/17 15:52 01/20/17 15:52 01/20/17 15:52 01/20/17 15:52 01/20/17 15:52 Intake and Output: 01/20/17 01/21/17 18:59 06:59 Intake Total 360 Balance 360 - Medications Medications: Current Medications Albuterol Sulfate (Albuterol 0.083% Inhal Emily (2.5 Mg/3 Ml) Ud) 2.5 mg INH RQ6 [facility] Last Admin: 01/20/17 19:29 Dose: 2.5 mg Diphenhydramine HCl (Benadryl) 25 mg PO Q8 PRN PRN Reason: Itching / Pruritus Last Admin: 01/19/17 13:11 Dose: 25 mg Docusate Sodium (Colace) 100 mg PO BID [facility] Last Admin: 01/20/17 17:14 Dose: 100 mg Enoxaparin Sodium (Lovenox) 40 mg SC DAILY [facility] Last Admin: 01/20/17 10:34 Dose: 40 mg Famotidine (Pepcid) 20 mg PO DAILY [facility] Last Admin: 01/20/17 10:35 Dose: 20 mg Fluticasone Propionate (Flonase) 1 spr NS DAILY [facility] Last Admin: 01/20/17 10:34 Dose: 1 spray Guaifenesin (Mucinex La) 600 mg PO BID [facility] Last Admin: 01/20/17 18:06 Dose: 600 mg Methylprednisolone (Solu-Medrol) 40 mg IVP Q12H [facility] Last Admin: 01/20/17 17:14 Dose: 40 mg Montelukast Sodium (Singulair) 10 mg PO HS [facility] Last Admin: 01/20/17 22:21 Dose: 10 mg Nicotine (Nicoderm Cq) 1 patch TD DAILY [facility] Last Admin: 01/20/17 10:34 Dose: 1 patch Fluticasone/Salmeterol (Advair Diskus 250/50) 1 puff INH RQ12 [facility] Last Admin: 01/20/17 19:29 Dose: 1 puff Sennosides (Senokot Tab) 8.6 mg PO DAILY [facility] Last Admin: 01/20/17 10:35 Dose: 8.6 mg Zolpidem Tartrate (Ambien) 5 mg PO HS PRN PRN Reason: Insomnia Last Admin: 01/20/17 22:21 Dose: 5 mg - Labs Labs: 01/19/17 13:47 01/19/17 13:47 - Constitutional Appears: Non-toxic, No Acute Distress - Head Exam Head Exam: ATRAUMATIC, NORMAL INSPECTION, NORMOCEPHALIC - Eye Exam Eye Exam: EOMI, Normal appearance, PERRL Pupil Exam: NORMAL ACCOMODATION - ENT Exam ENT Exam: Mucous Membranes Moist, Normal Exam, Normal Oropharynx, TM's Normal Bilaterally - Respiratory Exam Respiratory Exam: Decreased Breath Sounds, Rhonchi - Cardiovascular Exam Cardiovascular Exam: REGULAR RHYTHM, +S1, +S2 - GI/Abdominal Exam GI & Abdominal Exam: Soft, Normal Bowel Sounds - Rectal Exam Rectal Exam: NORMAL INSPECTION - Extremities Exam Extremities Exam: Normal Capillary Refill - Neurological Exam Neurological Exam: Alert, Awake, CN II-XII Intact, Normal Gait, Oriented x3 Assessment and Plan (1) Exacerbation of asthma Status: Acute (2) Low back pain Status: Chronic (3) Osteoarthritis Status: Chronic (4) Anxiety Status: Chronic
[2017-01-21] MEDS: Albuterol 0.083% Inhal Sol (2.5 mg/3 mL) UD INH SCH ×3 (01:12→13:22)
[2017-01-21] MEDS: MethylPREDNISolone 40 mg Vial IVP SCH (05:51)
[2017-01-21 07:33] VITALS: BP 154/68; PULSE 61; TEMP 98.1; O2SAT 100
[2017-01-21] MEDS: Fluticasone Nasal 50 mcg/Spray NS SCH (10:20)
[2017-01-21] MEDS: Enoxaparin 40 mg Syringe SC SCH (10:20)
[2017-01-21] MEDS: guaiFENesin 600 mg ER Tab PO SCH (10:20)
[2017-01-21] MEDS: Fluticasone-Salmeterol 250-50mcg Diskus INH SCH (10:56)
--- NOTE | 2017-01-21 11:51 | CP.PCM.PN ---
Subjective - Date & Time of Evaluation Date of Evaluation: 01/21/17 Time of Evaluation: 11:00 - Subjective Subjective: Pt seen and examined today, states sob improved, less sob , cough and congestion oob ambulating the hallway without sob Objective - Vital Signs/Intake and Output Vital Signs (last 24 hours): Temp Pulse Resp BP Pulse Ox 98.1 F 61 20 154/68 H 100 01/21/17 07:32 01/21/17 07:32 01/21/17 07:32 01/21/17 07:32 01/21/17 07:32 Intake and Output: 01/21/17 01/21/17 06:59 18:59 Intake Total 600 Balance 600 - Medications Medications: Current Medications Albuterol Sulfate (Albuterol 0.083% Inhal Emily (2.5 Mg/3 Ml) Ud) 2.5 mg INH RQ6 [facility] Last Admin: 01/21/17 07:09 Dose: 2.5 mg Diphenhydramine HCl (Benadryl) 25 mg PO Q8 PRN PRN Reason: Itching / Pruritus Last Admin: 01/19/17 13:11 Dose: 25 mg Docusate Sodium (Colace) 100 mg PO BID [facility] Last Admin: 01/21/17 10:20 Dose: 100 mg Enoxaparin Sodium (Lovenox) 40 mg SC DAILY [facility] Last Admin: 01/21/17 10:20 Dose: 40 mg Famotidine (Pepcid) 20 mg PO DAILY [facility] Last Admin: 01/21/17 10:20 Dose: 20 mg Fluticasone Propionate (Flonase) 1 spr NS DAILY [facility] Last Admin: 01/21/17 10:20 Dose: 1 spray Guaifenesin (Mucinex La) 600 mg PO BID [facility] Last Admin: 01/21/17 10:20 Dose: 600 mg Methylprednisolone (Solu-Medrol) 40 mg IVP Q12H [facility] Last Admin: 01/21/17 05:51 Dose: 40 mg Miconazole Nitrate (Monistat 7 Vaginal Cream) 1 ea VG HS [facility] Montelukast Sodium (Singulair) 10 mg PO HS [facility] Last Admin: 01/20/17 22:21 Dose: 10 mg Nicotine (Nicoderm Cq) 1 patch TD DAILY [facility] Last Admin: 01/21/17 10:19 Dose: 1 patch Fluticasone/Salmeterol (Advair Diskus 250/50) 1 puff INH RQ12 [facility] Last Admin: 01/21/17 10:56 Dose: 1 puff Sennosides (Senokot Tab) 8.6 mg PO DAILY [facility] Last Admin: 01/21/17 10:28 Dose: Not Given Zolpidem Tartrate (Ambien) 5 mg PO HS PRN PRN Reason: Insomnia Last Admin: 01/20/17 22:21 Dose: 5 mg - Labs Labs: 01/19/17 13:47 01/19/17 13:47 - Constitutional Appears: Well, No Acute Distress - Head Exam Head Exam: ATRAUMATIC, NORMAL INSPECTION, NORMOCEPHALIC - ENT Exam ENT Exam: Mucous Membranes Moist - Neck Exam Neck Exam: Full ROM - Respiratory Exam Respiratory Exam: Rhonchi, NORMAL BREATHING PATTERN - Cardiovascular Exam Cardiovascular Exam: REGULAR RHYTHM, +S1, +S2 - GI/Abdominal Exam GI & Abdominal Exam: Soft, Normal Bowel Sounds - Neurological Exam Neurological Exam: Alert, Awake, Oriented x3 Assessment and Plan - Assessment and Plan (Free Text) Assessment: 46 yr old female admitted for exc. COPD Pt clinically improved with steroids and mucmyst , INH c/o vaginal itch and secretions - diflucan 200 mg x1 dose given prior discharge D/W Dr. Ambrose, cleared for discharge home today and f/u with Dr. Ambrose office in 1 week Discharge plan discussed with patient who understands and agrees with plan Patient instructed to returns to ED if symptoms returns RX meds to bed offered and pat accepted
[2017-01-21] MEDS ORDERED: Miconazole 2% Vaginal Cream(45 gm) VG SCH (12:00)
--- NOTE | 2017-01-22 20:00 | CP.PCM.DIS ---
Provider - Provider Date of Admission: 01/17/17 18:12 Attending physician: David Ambrose MD Diagnosis - Discharge Diagnosis (1) Exacerbation of asthma Status: Acute Priority: High (2) Low back pain Status: Chronic (3) Osteoarthritis Status: Chronic Priority: High (4) Anxiety Status: Chronic Priority: Medium Hospital Course - Lab Results Lab Results: Most Recent Lab Values WBC 21.7 K/uL (4.8-10.8) H 01/19/17 13:47 RBC 4.04 Mil/uL (3.80-5.20) 01/19/17 13:47 Hgb 12.8 g/dL (11.0-16.0) 01/19/17 13:47 Hct 39.3 % (34.0-47.0) 01/19/17 13:47 MCV 97.1 fL (81.0-99.0) 01/19/17 13:47 MCH 31.7 pg (27.0-31.0) H 01/19/17 13:47 MCHC 32.7 g/dL (33.0-37.0) L 01/19/17 13:47 RDW 13.8 % (11.5-14.5) 01/19/17 13:47 Plt Count 313 K/uL (130-400) 01/19/17 13:47 MPV 7.8 fL (7.2-11.7) 01/19/17 13:47 Neut % (Auto) 80.6 % (50.0-75.0) H 01/19/17 13:47 Lymph % (Auto) 14.6 % (20.0-40.0) L 01/19/17 13:47 Ocean % (Auto) 4.5 % (0.0-10.0) 01/19/17 13:47 Eos % (Auto) 0.0 % (0.0-4.0) 01/19/17 13:47 Baso % (Auto) 0.3 % (0.0-2.0) 01/19/17 13:47 Neut # 17.5 K/uL (1.8-7.0) H 01/19/17 13:47 Lymph # 3.2 K/uL (1.0-4.3) 01/19/17 13:47 Ocean # 1.0 K/uL (0.0-0.8) H 01/19/17 13:47 Eos # 0.0 K/uL (0.0-0.7) 01/19/17 13:47 Baso # 0.1 K/uL (0.0-0.2) 01/19/17 13:47 Sodium 140 mmol/L (132-148) 01/19/17 13:47 Potassium 4.9 mmol/L (3.6-5.2) 01/19/17 13:47 Chloride 103 mmol/L (98-107) 01/19/17 13:47 Carbon Dioxide 24 mmol/L (22-30) 01/19/17 13:47 Anion Gap 18 (10-20) 01/19/17 13:47 BUN 19 mg/dL (7-17) H 01/19/17 13:47 Creatinine 0.9 MG/DL (0.7-1.2) 01/19/17 13:47 Est GFR ( Amer) > 60 01/19/17 13:47 Est GFR (Non-Af Amer) > 60 01/19/17 13:47 Random Glucose 126 mg/dL (65-105) H 01/19/17 13:47 Calcium 9.4 mg/dl (8.6-10.4) 01/19/17 13:47 Total Bilirubin 0.6 mg/dL (0.2-1.3) 01/17/17 18:18 AST 20 U/L (14-36) 01/17/17 18:18 ALT 51 U/L (9-52) 01/17/17 18:18 Alkaline Phosphatase 76 U/L (38-126) 01/17/17 18:18 Total Protein 6.1 g/dL (6.3-8.3) L 01/17/17 18:18 Albumin 3.6 g/dL (3.5-5.0) 01/17/17 18:18 Globulin 2.6 gm/dL (2.2-3.9) 01/17/17 18:18 Albumin/Globulin Ratio 1.4 (1.0-2.1) 01/17/17 18:18 Urine Color Yellow (YELLOW) 01/17/17 18:50 Urine Clarity Clear (Clear) 01/17/17 18:50 Urine pH 6.0 (5.0-8.0) 01/17/17 18:50 Ur Specific [place] 1.019 (1.003-1.030) 01/17/17 18:50 Urine Protein Negative mg/dL (NEGATIVE) 01/17/17 18:50 Urine Glucose (UA) Normal mg/dL (Normal) 01/17/17 18:50 Urine Ketones Negative mg/dL (NEGATIVE) 01/17/17 18:50 Urine Blood 1+ (NEGATIVE) H 01/17/17 18:50 Urine Nitrate Negative (NEGATIVE) 01/17/17 18:50 Urine Bilirubin Negative (NEGATIVE) 01/17/17 18:50 Urine Urobilinogen Normal mg/dL (0.2-1.0) 01/17/17 18:50 Ur Leukocyte Esterase Neg [place]/uL (Negative) 01/17/17 18:50 Urine WBC (Auto) < 1 /hpf (0-5) 01/17/17 18:50 Urine RBC (Auto) 5 /hpf (0-3) H 01/17/17 18:50 Ur Squamous Epith Cells 1 /hpf (0-5) 01/17/17 18:50 Urine Bacteria Rare (<OCC) 01/17/17 18:50 Urine HCG, Qual Negative (NEGATIVE) 01/19/17 10:35 - Hospital Course Hospital Course: less sob, less cough, less congested, constipated at times, Discharge Exam - Head Exam Head Exam: ATRAUMATIC, NORMAL INSPECTION, NORMOCEPHALIC - Eye Exam Eye Exam: EOMI, Normal appearance, PERRL Pupil Exam: NORMAL ACCOMODATION - ENT Exam ENT Exam: Mucous Membranes Moist, Normal Exam, Normal Oropharynx, TM's Normal Bilaterally - Neck Exam Neck exam: Normal Inspection - Respiratory Exam Respiratory Exam: Clear to PA & Lateral, Rhonchi, NORMAL BREATHING PATTERN - Cardiovascular Exam Cardiovascular Exam: REGULAR RHYTHM, +S1, +S2 - GI/Abdominal Exam GI & Abdominal Exam: Normal Bowel Sounds - Extremities Exam Extremities exam: normal capillary refill, pedal pulses present - Neurological Exam Neurological exam: Alert, CN II-XII Intact, Normal Gait, Oriented x3, Reflexes Normal - Psychiatric Exam Psychiatric exam: Normal Affect, Normal Mood - Skin Skin Exam: Intact Discharge Plan - Discharge Medications Prescriptions: Acetylcysteine 20% 4 ml INH RQ6 #1 guaiFENesin [Mucinex LA] 600 mg PO BID #20 tab Nicotine 14 mg/24 hr [Nicoderm CQ] 1 patch TD DAILY #7 patch predniSONE [Prednisone] 30 mg PO DAILY #18 tab - Follow Up Plan Condition: STABLE Disposition: HOME/ ROUTINE Instructions: Prednisone (By mouth), Guaifenesin (By mouth), Acetylcysteine ( By breathing), Asthma (DC), How to Stop Smoking (DC), Cigarette Smoking and Your Health (GEN), Dyspnea (GEN) Additional Instructions: Please f/u with Dr. Ambrose office next week Continue medication as per Med. REc. Referrals: David Ambrose MD [Staff Provider] -
== END 2017-01-21 13:30 | disposition home or self-care (01) | DRG 203 ==
LOC: C.ER 16:03 → C.9E 18:12 → C.3T 19:29
PROVIDERS: ADMIT Internal Medicine; ATTEND Internal Medicine
DX: J45.901 Unspecified asthma with (acute) exacerbation (principal); J44.9 Chronic obstructive pulmonary disease, unspecified; I10 Essential (primary) hypertension; M19.90 Unspecified osteoarthritis, unspecified site; F41.9 Anxiety disorder, unspecified; G47.00 Insomnia, unspecified; F17.210 Nicotine dependence, cigarettes, uncomplicated; M54.5 Low back pain; K59.00 Constipation, unspecified

== ENCOUNTER 2017-06-23 19:58 | Inpatient (IN) | payer MEDICARE ==
--- NOTE | 2017-06-23 20:30 | C.PDOC ---
History Of Present Illness 47 year old female presents to the ER with a complaint of lower abdominal pain that radiates from the lower back for the past 6 days. Patient was seen by her PMD, Dr. Ambrose, who gave her bentyl and reglan, however, she reports no improvement. The patient's pain is associated with watery diarrhea, nausea, or vomiting; denies fever, dysuria, hematuria, or vaginal discharge. Time Seen by Provider: 06/23/17 20:26 Chief Complaint (Nursing): Abdominal Pain History Per: Patient History/Exam Limitations: no limitations Onset/Duration Of Symptoms: Days Current Symptoms Are (Timing): Still Present Location Of Pain/Discomfort: Other (Lower abdominal radiating from lower back) Quality Of Discomfort: Unable To Describe Associated Symptoms: Nausea, Vomiting, Diarrhea. denies: Fever, Urinary Symptoms, Other (Vaginal discharge) Exacerbating Factors: None Alleviating Factors: None Recent travel outside of the [place]: No Abnormal Vaginal Bleeding: No Past Medical History Reviewed: Historical Data, Nursing Documentation, Vital Signs Vital Signs: Last Vital Signs Temp 99.1 F 06/23/17 20:17 Pulse 93 H 06/23/17 20:17 Resp 19 06/23/17 20:17 BP 132/89 06/23/17 20:17 Pulse Ox 99 06/23/17 20:29 - Medical History PMH: Asthma, Bronchitis Surgical History: No Surg Hx Family History: States: Unknown Family Hx - Social History Hx Tobacco Use: Yes Hx Alcohol Use: Yes (socially) Hx Substance Use: Yes (marijuana) - Immunization History Hx Tetanus Toxoid Vaccination: Yes Hx Influenza Vaccination: No Hx Pneumococcal Vaccination: Yes Review Of Systems Except As Marked, All Systems Reviewed And Found Negative. Gastrointestinal: Positive for: Nausea, Vomiting, Abdominal Pain, Diarrhea Musculoskeletal: Positive for: Back Pain Physical Exam - Physical Exam Appears: Other (Mild pain) Skin: Normal Color, Warm, Dry Head: Atraumatic, Normacephalic Oral Mucosa: Moist Chest: Symmetrical, No Tenderness Cardiovascular: Rhythm Regular Respiratory: Normal Breath Sounds, No Rales, No Rhonchi, No Wheezing Gastrointestinal/Abdominal: Soft, Tenderness (Diffuse), No Guarding, No Rebound , Other (Obese, midline surgical scar below the umbilicus) Back: No CVA Tenderness Neurological/Psych: Oriented x3, Normal Speech, Normal Cognition ED Course And Treatment O2 Sat by Pulse Oximetry: 99 (Room air) Pulse Ox Interpretation: Normal Progress Note: Blood work and urinalysis ordered. IV fluids, toradol, and zofran administered. Disposition - Disposition Referrals: David Ambrose MD [Primary Care Provider] - Forms: [employer] (Belarusian) - Scribe Statement The provider has reviewed the documentation as recorded by the Scribe Dc Albarran All medical record entries made by the Scribe were at my direction and personally dictated by me. I have reviewed the chart and agree that the record accurately reflects my personal performance of the history, physical exam, medical decision making, and the department course for this patient. I have also personally directed, reviewed, and agree with the discharge instructions and disposition.
[2017-06-23] MEDS ORDERED: Sodium Chloride 0.9% 1,000 ML IV ONE ×2 (20:42→21:58)
[2017-06-23] MEDS ORDERED: Sodium Chloride 0.9% 1,000 ML ONE ×2 (20:47→22:19)
[2017-06-23 21:16] LABS: HCG,QUALITATIVE URINE NEGATIVE (NEGATIVE)
[2017-06-23 21:22] LABS: BASO # 0.1 K/uL (0.0-0.2); BASO % 0.7 % (0.0-2.0); EOS # 0.7 K/uL (0.0-0.7); EOS % 5.4 % (0.0-4.0); HEMOGLOBIN 14.2 g/dL (11.0-16.0); LYMPH % 47.1 % (20.0-40.0); MEAN CORPUSCULAR HEMOGLOBIN 31.9 pg (27.0-31.0); MEAN CORPUSCULAR HGB CONC 34.1 g/dL (33.0-37.0); MEAN PLATELET VOLUME 7.5 fL (7.2-11.7); MONO # 0.7 K/uL (0.0-0.8); MONO % 5.5 % (0.0-10.0); NEUT # 5.3 K/uL (1.8-7.0); NEUT % 41.3 % (50.0-75.0); NRBC % 0.1 % (0.0-2.0); RBC 4.46 Mil/uL (3.80-5.20); RED CELL DISTRIBUTION WIDTH 13.7 % (11.5-14.5); SQUAMOUS EPITHIAL 13 /hpf (0-5); WHITE BLOOD COUNT 12.7 K/uL (4.8-10.8)
[2017-06-23 21:23] LABS: PH,URINE 5.5 (5.0-8.0); URINE BILIRUBIN SMALL (NEGATIVE); URINE BLOOD LARGE (NEGATIVE); URINE CLARITY CLEAR (Clear); URINE COLOR YELLOW (YELLOW); URINE GLUCOSE (UA) NEGATIVE (Normal); URINE LEUKOCYTE ESTERASE NEGATIVE Leu/uL (Negative); URINE NITRATE NEGATIVE (NEGATIVE); URINE PROTEIN TRACE mg/dL (NEGATIVE); URINE UROBILINOGEN 0.2 mg/dL (0.2-1.0)
[2017-06-23 21:24] LABS: MEAN CELL VOLUME 93.5 fL (81.0-99.0)
[2017-06-23 21:25] LABS: ALB/GLOB RATIO 1.3 (1.0-2.1); ALBUMIN 3.8 g/dL (3.5-5.0); ALT/SGPT 113 U/L (9-52); AST/SGOT 24 U/L (14-36); BLOOD UREA NITROGEN 10 mg/dL (7-17); CALCIUM 8.8 mg/dl (8.6-10.4); GFR AFRICAN-AMERICAN > 60; GFR NON-AFRICAN AMERICAN > 60; LIPASE 1601 U/L (23-300)
[2017-06-23] MEDS ORDERED: Morphine 4 MG/ML VIAL ONE (22:19)
--- NOTE | 2017-06-23 23:05 | US ---
EXAM: US Abdomen Limited, Right Upper Quadrant CLINICAL HISTORY: 47 years old, female; Signs and symptoms and condition or disease; Pancreatic condition; Other: Pancreatitis; Other: Pain; Additional info: Pancreatitis, R/O gallstones TECHNIQUE: Real-time ultrasound of the right upper quadrant with image documentation. COMPARISON: No relevant prior studies available. FINDINGS: Liver: Enlarged, 19.5 cm. Fatty infiltration. No mass. No intrahepatic ductal dilatation. Gallbladder: No gallstones. No wall thickening. No pericholecystic fluid. No sonographic Johnson's sign. Common bile duct: No dilatation. No stones. Pancreas: Unremarkable as visualized. Right kidney: Normal echogenicity. No hydronephrosis. IMPRESSION: 1.No acute findings. 2.Non-acute findings are described above.
[2017-06-24] MEDS ORDERED: Albuterol 0.083% Inhal Sol (2.5 mg/3 mL) UD IH PRN (00:14)
[2017-06-24] MEDS: Morphine 4 MG/ML VIAL IVP PRN ×2 (02:03→06:48)
[2017-06-24] MEDS: Dextrose 5%/0.45% NS 1,000 ML IV SCH ×2 (02:04→16:16)
[2017-06-24] MEDS: Fluticasone-Salmeterol 250-50mcg Diskus INH SCH ×2 (08:03→19:29)
--- NOTE | 2017-06-24 08:48 | RAD ---
Chest x-ray single frontal view History: Pancreatitis. Comparison: 01/17/2017 Findings: No focal infiltrate or effusion. Heart size within normal limits. Impression: No focal infiltrate or effusion.
[2017-06-24] MEDS: Oxycodone/Acetaminophen 5/325 mg Tab PO PRN ×2 (10:39→17:07)
[2017-06-24] MEDS: Enoxaparin 40 mg Syringe SC SCH (10:40)
[2017-06-24 12:09] LABS: AMYLASE 155 U/L (30-110); LIPASE 1080 U/L (23-300)
--- NOTE | 2017-06-24 19:23 | CARD ---
APPROVED REPORT EKG Measurement Heart [id number] <Conclusion> Sinus bradycardia Possible Left atrial enlargement Septal infarct, age undetermined Abnormal ECG
--- NOTE | 2017-06-24 22:31 | CP.PCM.HP ---
History of Present Illness - History of Present Illness History of Present Illness: CC: abdomial pain HPI: 47 year old female well knwon to me with h/o bronchial asthama , HTN, chronic constipation and avascular necrosis of hip, pt is complanit to diet , medicationa nd follwo up presents to the ER with a complaint of lower abdominal pain that radiates from the lower back for the past 6 days. Patient was seen by me, I gave her bentyl and reglan, however, she reports no improvement. The patient's pain is associated with watery diarrhea, nausea, or vomiting; denies fever, dysuria, hematuria, or vaginal discharge. Present on Admission - Present on Admission Any Indicators Present on Admission: Yes Past Patient History - Infectious Disease Hx of Infectious Diseases: None - Past Medical History & Family History Past Medical History?: Yes - Past Social History Smoking Status: Unknown If Ever Smoked - CARDIAC Hx Cardiac Disorders: No - PULMONARY Hx Respiratory Disorders: Yes Hx Asthma: Yes Hx Bronchitis: Yes - NEUROLOGICAL Hx Neurological Disorder: No - HEENT Hx HEENT Problems: No - RENAL Hx Chronic Kidney Disease: No - ENDOCRINE/METABOLIC Hx Endocrine Disorders: No - HEMATOLOGICAL/ONCOLOGICAL Hx Blood Disorders: No - INTEGUMENTARY Hx Dermatological Problems: No - MUSCULOSKELETAL/RHEUMATOLOGICAL Hx Musculoskeletal Disorders: Yes Hx Degenerative Joint Disease: Yes (bilat hips) Hx Falls: No - GASTROINTESTINAL Hx Gastrointestinal Disorders: No - GENITOURINARY/GYNECOLOGICAL Hx Genitourinary Disorders: No - PSYCHIATRIC Hx Substance Use: Yes (marijuana) - SURGICAL HISTORY Hx Surgeries: Yes Hx Section: Yes Hx Orthopedic Surgery: Yes (LEFT orif) - ANESTHESIA Hx Anesthesia: Yes Hx Anesthesia Reactions: No Hx Malignant Hyperthermia: No Has any member of the family had a problem w/ anesthesia?: No Meds Allergies/Adverse Reactions: Allergies Allergy/AdvReac Type Severity Reaction Status Date / Time pantoprazole sodium Allergy Verified 06/23/17 20:17 [From Protonix] shellfish derived Allergy Verified 06/23/17 20:17 Physical Exam - Constitutional Appears: No Acute Distress Additional comments: in pain - Eye Exam Eye Exam: EOMI, Normal appearance, PERRL Pupil Exam: NORMAL ACCOMODATION, PERRL - Respiratory Exam Respiratory Exam: Clear to Auscultation Bilateral, NORMAL BREATHING PATTERN - Cardiovascular Exam Cardiovascular Exam: REGULAR RHYTHM - GI/Abdominal Exam GI & Abdominal Exam: Tenderness Results - Vital Signs Recent Vital Signs: Last Vital Signs Temp 98.1 F 06/24/17 18:07 Pulse 54 L 06/24/17 18:07 Resp 20 06/24/17 18:07 BP 139/76 06/24/17 18:07 Pulse Ox 100 06/24/17 18:07 - Labs Result Diagrams: 06/23/17 21:10 06/23/17 21:10 Labs: Laboratory Results - last 24 hr 06/24/17 06/24/17 06/24/17 11:46 19:55 19:55 PT 11.0 INR 1.0 APTT 27 Amylase 155 H Lipase 1080 H Alpha Fetoprotein 2.9 Carcinoembryonic Ag CA 19-9 Antigen CA 125 Antigen 06/24/17 19:55 PT INR APTT Amylase Lipase Alpha Fetoprotein Carcinoembryonic Ag 2.3 CA 19-9 Antigen 47.4 H CA 125 Antigen 10.0 Assessment & Plan (1) Abdominal pain Status: Acute (2) Acute pancreatitis Status: Acute (3) Insomnia Status: Acute (4) Anxiety Status: Chronic Priority: Medium (5) Low back pain Status: Chronic (6) Osteoarthritis Status: Chronic Priority: High
--- NOTE | 2017-06-24 22:31 | CP.PCM.PN ---
Subjective - Date & Time of Evaluation Date of Evaluation: 06/24/17 Time of Evaluation: 18:00 - Subjective Subjective: Pt seen and examined at bedside, pt is feeling better,clinincally improved, lipase is down , no fever, chills, NPO and to be seen by GI.abdominal pain, nausea, vomitting is improved Objective - Vital Signs/Intake and Output Vital Signs (last 24 hours): Temp Pulse Resp BP Pulse Ox 98.1 F 54 L 20 139/76 100 06/24/17 18:07 06/24/17 18:07 06/24/17 18:07 06/24/17 18:07 06/24/17 18:07 Intake and Output: 06/24/17 06/25/17 18:59 06:59 Intake Total 640 Balance 640 - Medications Medications: Current Medications Albuterol Sulfate (Albuterol 0.083% Inhal Emily (2.5 Mg/3 Ml) Ud) 2.5 mg IH Q4 PRN PRN Reason: Shortness of Breath Enoxaparin Sodium (Lovenox) 40 mg SC DAILY [facility] Last Admin: 06/24/17 10:40 Dose: 40 mg Famotidine (Pepcid) 20 mg IVP Q12 [facility] Last Admin: 06/24/17 22:24 Dose: 20 mg Dextrose/Sodium Chloride (Dextrose 5%/0.45% Ns 1000 Ml) 1,000 mls @ 80 mls/hr IV .[id number] [facility] Last Admin: 06/24/17 16:16 Dose: Not Given Montelukast Sodium (Singulair) 10 mg PO HS [facility] Last Admin: 06/24/17 22:23 Dose: 10 mg Oxycodone/Acetaminophen (Percocet 5/325 Mg Tab) 2 tab PO Q4H PRN PRN Reason: Pain, Mild (1-3) Stop: 06/27/17 10:26 Last Admin: 06/24/17 17:07 Dose: 2 tab Fluticasone/Salmeterol (Advair Diskus 250/50) 1 puff INH RQ12 [facility] Last Admin: 06/24/17 19:29 Dose: Not Given Zolpidem Tartrate (Ambien) 5 mg PO HS PRN PRN Reason: Insomnia Last Admin: 06/24/17 22:23 Dose: 5 mg - Labs Labs: 06/23/17 21:10 06/23/17 21:10 PT 11.0 SECONDS (9.7-12.2) 06/24/17 19:55 INR 1.0 06/24/17 19:55 APTT 27 SECONDS (21-34) 06/24/17 19:55 - Constitutional Appears: No Acute Distress - Head Exam Head Exam: ATRAUMATIC, NORMAL INSPECTION, NORMOCEPHALIC - Eye Exam Eye Exam: EOMI, Normal appearance, PERRL Pupil Exam: NORMAL ACCOMODATION, PERRL - Respiratory Exam Respiratory Exam: Clear to Ausculation Bilateral, NORMAL BREATHING PATTERN - Cardiovascular Exam Cardiovascular Exam: REGULAR RHYTHM, +S1, +S2. absent: Murmur - GI/Abdominal Exam GI & Abdominal Exam: Tenderness - Rectal Exam Rectal Exam: Deferred Assessment and Plan (1) Acute pancreatitis Assessment & Plan: NPO monitor pt GI eval lipase is down most likely cause is alcohol induced Status: Acute (2) Alcoholic Status: Acute (3) Abdominal pain Status: Acute (4) Insomnia Status: Acute
[2017-06-25] MEDS: Dextrose 5%/0.45% NS 1,000 ML IV SCH ×2 (01:15→16:36)
[2017-06-25] MEDS: Oxycodone/Acetaminophen 5/325 mg Tab PO PRN ×3 (02:48→16:51)
[2017-06-25 08:39] LABS: SQUAMOUS EPITHIAL 1 /hpf (0-5); URINE BACTERIA RARE (<OCC); URINE BILIRUBIN NEGATIVE (NEGATIVE); URINE BLOOD 1+ (NEGATIVE); URINE CLARITY Clear (Clear); URINE COLOR Straw (YELLOW); URINE GLUCOSE (UA) NORMAL (Normal); URINE LEUKOCYTE ESTERASE NEG Leu/uL (Negative); URINE NITRATE NEGATIVE (NEGATIVE); URINE PROTEIN NEGATIVE (NEGATIVE); URINE UROBILINOGEN NORMAL mg/dL (0.2-1.0)
[2017-06-25 08:57] LABS: HEMOGLOBIN 13.7 g/dL (11.0-16.0); MEAN CELL VOLUME 93.5 fL (81.0-99.0); MEAN CORPUSCULAR HEMOGLOBIN 32.9 pg (27.0-31.0); MEAN CORPUSCULAR HGB CONC 35.2 g/dL (33.0-37.0); MEAN PLATELET VOLUME 7.5 fL (7.2-11.7); RBC 4.15 Mil/uL (3.80-5.20); RED CELL DISTRIBUTION WIDTH 13.5 % (11.5-14.5); WHITE BLOOD COUNT 9.5 K/uL (4.8-10.8)
[2017-06-25 09:22] LABS: ALB/GLOB RATIO 1.4 (1.0-2.1); ALBUMIN 3.6 g/dL (3.5-5.0); ALT/SGPT 73 U/L (9-52); AST/SGOT 28 U/L (14-36); BLOOD UREA NITROGEN 9 mg/dL (7-17); GFR AFRICAN-AMERICAN > 60; GFR NON-AFRICAN AMERICAN > 60
[2017-06-25] MEDS ORDERED: Influenza Vaccine 60 mcg/0.5 mL SYR (4YR UP) IM ONE (10:00)
[2017-06-25] MEDS: Enoxaparin 40 mg Syringe SC SCH (10:46)
[2017-06-25] MEDS: Fluticasone-Salmeterol 250-50mcg Diskus INH SCH (10:53)
--- NOTE | 2017-06-25 17:27 | PN ---
DATE: LOCATION: [facility], bed B. SUBJECTIVE: This is a 47-year-old female seen for GI consultation initially on 06/24/2017 as requested by the admitting medical staff, re-examined again today with intermittent chato-abdominal pain with postprandial abdominal distention before, was found to have elevated serum lipase and amylase levels. No chest pain or palpitation. No significant complaint of shortness of breath, chills, or fever. The entire chart is reviewed including, but not limited to, the most recent lab and radiology study results, current and the previous medication list, current and the previous medical events, and today's lab showed normal CBC with thrombocytosis of 419 with normal PT and PTT, ALT went down 73, alkaline phosphatase went down to 160 with total protein 6.2. Cancer markers are reported to be normal, but CA 19-9 was elevated to 47.4. No lipase, amylase, liver reported today. PHYSICAL EXAMINATION: GENERAL: A 47-year-old female, appeared to be awake, alert, oriented, complaining of abdominal pain with dyspepsia. VITAL SIGNS: Afebrile with pulse of 56, respiratory rate 20 to 22 with blood pressure 130/66. HEENT: Showed dry oral mucoid membrane, nonicteric sclerae. LUNGS: Few scattered crepitation. Decreased air entry at bases. HEART: Positive S1 and S2. ABDOMEN: Soft, mildly distended with mild generalized tenderness. No mass or organomegaly. No rebound tenderness or guarding. RECTAL: The patient refused. EXTREMITIES: Without significant clubbing, cyanosis, or edema. NEUROLOGIC: No neurological deficits, sensory or motor. IMPRESSION: 1. Acute pancreatitis, unclear etiology. 2. Known history of bronchial asthma with recurrent bronchitis. 3. Re-exacerbation of peptic ulcer disease. SUGGESTION: 1. Agree with your plan. 2. Repeat serum lipase, amylase level. 3. Lipid profile to rule out hyperglycemia inducing acute pancreatitis. 4. Further recommendation to follow. Cheryl Short MD
--- NOTE | 2017-06-26 00:04 | CP.PCM.PN ---
Subjective - Date & Time of Evaluation Date of Evaluation: 06/25/17 Time of Evaluation: 17:00 - Subjective Subjective: Patient seen & evaluated at bedside, pt is on clear liquid diet, decreased abdominal pain, no nausea, vomitting, no fever, VSS Objective - Vital Signs/Intake and Output Vital Signs (last 24 hours): Temp Pulse Resp BP Pulse Ox 98.1 F 52 L 20 145/77 98 06/25/17 17:03 06/25/17 17:03 06/25/17 17:03 06/25/17 17:03 06/25/17 17:03 Intake and Output: 06/25/17 06/26/17 18:59 06:59 Intake Total 720 450 Balance 720 450 - Medications Medications: Current Medications Albuterol Sulfate (Albuterol 0.083% Inhal Emily (2.5 Mg/3 Ml) Ud) 2.5 mg IH Q4 PRN PRN Reason: Shortness of Breath Enoxaparin Sodium (Lovenox) 40 mg SC DAILY [facility] Last Admin: 06/25/17 10:46 Dose: 40 mg Famotidine (Pepcid) 20 mg IVP Q12 [facility] Last Admin: 06/25/17 21:36 Dose: 20 mg Dextrose/Sodium Chloride (Dextrose 5%/0.45% Ns 1000 Ml) 1,000 mls @ 80 mls/hr IV .[id number] [facility] Last Admin: 06/25/17 16:36 Dose: Not Given Montelukast Sodium (Singulair) 10 mg PO HS [facility] Last Admin: 06/25/17 21:36 Dose: 10 mg Oxycodone/Acetaminophen (Percocet 5/325 Mg Tab) 2 tab PO Q4H PRN PRN Reason: Pain, Mild (1-3) Stop: 06/27/17 10:26 Last Admin: 06/25/17 16:51 Dose: 2 tab Fluticasone/Salmeterol (Advair Diskus 250/50) 1 puff INH RQ12 [facility] Last Admin: 06/25/17 10:53 Dose: Not Given Zolpidem Tartrate (Ambien) 5 mg PO HS PRN PRN Reason: Insomnia Last Admin: 06/25/17 22:28 Dose: 5 mg - Labs Labs: 06/25/17 08:48 02/03/18 08:48 PT 11.0 SECONDS (9.7-12.2) 06/24/17 19:55 INR 1.0 06/24/17 19:55 APTT 27 SECONDS (21-34) 06/24/17 19:55 - Constitutional Appears: No Acute Distress - Head Exam Head Exam: ATRAUMATIC, NORMAL INSPECTION, NORMOCEPHALIC - Eye Exam Eye Exam: EOMI, Normal appearance, PERRL Pupil Exam: NORMAL ACCOMODATION, PERRL - Respiratory Exam Respiratory Exam: Clear to Ausculation Bilateral, NORMAL BREATHING PATTERN - Cardiovascular Exam Cardiovascular Exam: REGULAR RHYTHM, +S1, +S2. absent: Murmur - GI/Abdominal Exam GI & Abdominal Exam: Soft, Normal Bowel Sounds. absent: Tenderness Assessment and Plan (1) Abdominal pain Status: Acute (2) Acute pancreatitis Status: Acute (3) Insomnia Status: Acute (4) Anxiety Status: Chronic (5) Low back pain Status: Chronic (6) Osteoarthritis Status: Chronic
[2017-06-26] MEDS: Dextrose 5%/0.45% NS 1,000 ML IV SCH ×2 (02:18→14:25)
[2017-06-26] MEDS: Oxycodone/Acetaminophen 5/325 mg Tab PO PRN ×3 (05:48→21:31)
[2017-06-26] MEDS: Fluticasone-Salmeterol 250-50mcg Diskus INH SCH ×2 (07:58→20:08)
[2017-06-26 09:16] LABS: AMYLASE 126 U/L (30-110); HDL CHOLESTEROL 42 mg/dL (30-70); LIPASE 722 U/L (23-300)
[2017-06-26 09:21] LABS: LDL CHOLESTEROL 129 mg/dL (0-129)
[2017-06-26] MEDS: Enoxaparin 40 mg Syringe SC SCH (10:05)
--- NOTE | 2017-06-26 11:58 | CP.PCM.PN ---
Subjective - Date & Time of Evaluation Date of Evaluation: 06/26/17 Time of Evaluation: 14:00 - Subjective Subjective: Patient seen & evaluated at bedside, less short of breath, no cough, no fever, chills Objective - Vital Signs/Intake and Output Vital Signs (last 24 hours): Temp Pulse Resp BP Pulse Ox 98.1 F 62 20 153/74 H 99 06/26/17 00:00 06/26/17 00:00 06/26/17 00:00 06/26/17 00:00 06/26/17 00:00 Intake and Output: 06/26/17 06/26/17 06:59 18:59 Intake Total 450 Balance 450 - Medications Medications: Current Medications Albuterol Sulfate (Albuterol 0.083% Inhal Emily (2.5 Mg/3 Ml) Ud) 2.5 mg IH Q4 PRN PRN Reason: Shortness of Breath Enoxaparin Sodium (Lovenox) 40 mg SC DAILY [facility] Last Admin: 06/26/17 10:05 Dose: 40 mg Famotidine (Pepcid) 20 mg PO BID [facility] Last Admin: 06/26/17 10:16 Dose: 20 mg Dextrose/Sodium Chloride (Dextrose 5%/0.45% Ns 1000 Ml) 1,000 mls @ 80 mls/hr IV .[id number] [facility] Last Admin: 06/26/17 02:18 Dose: Not Given Montelukast Sodium (Singulair) 10 mg PO HS [facility] Last Admin: 06/25/17 21:36 Dose: 10 mg Oxycodone/Acetaminophen (Percocet 5/325 Mg Tab) 2 tab PO Q4H PRN PRN Reason: Pain, Mild (1-3) Stop: 06/27/17 10:26 Last Admin: 06/26/17 05:48 Dose: 2 tab Fluticasone/Salmeterol (Advair Diskus 250/50) 1 puff INH RQ12 [facility] Last Admin: 06/26/17 07:58 Dose: 1 puff Zolpidem Tartrate (Ambien) 5 mg PO HS PRN PRN Reason: Insomnia Last Admin: 06/25/17 22:28 Dose: 5 mg - Labs Labs: 06/25/17 08:48 06/25/17 08:48 PT 11.0 SECONDS (9.7-12.2) 06/24/17 19:55 INR 1.0 06/24/17 19:55 APTT 27 SECONDS (21-34) 06/24/17 19:55 Assessment and Plan (1) Abdominal pain Status: Acute (2) Acute pancreatitis Status: Acute (3) Insomnia Status: Acute (4) Anxiety Status: Chronic (5) Low back pain Status: Chronic (6) Osteoarthritis Status: Chronic
--- NOTE | 2017-06-26 13:40 | PN ---
DATE: 06/26/2017 LOCATION: [facility], bed B SUBJECTIVE: This is a 47-years old female, still complaining of some abdominal pain with intermittent period of nausea, but no chest pain, palpitations or active bleeding. The entire chart is reviewed including, but not limited to the most recent lab and radiology study results, current and previous medication list, current and previous medical events. Today's lab still pending; however, yesterday's labs showed normal CBC but mildly elevated ALT and alkaline phosphatase with low total protein. CA 19-9 reported to be elevated to 47.4. Repeat lipase and amylase level is still pending. PHYSICAL EXAMINATION: GENERAL: A 47-year-old female, awake, alert, and oriented with abdominal pain. VITAL SIGNS: Afebrile with pulse of 64, respiratory rate 20-22, blood pressure 150/70. HEENT: Showed pale dry oral mucoid membrane mildly. Nonicteric sclerae. LUNGS: Few scattered crepitation with decreased air entry at base. HEART: Positive S1 and S2. ABDOMEN: Soft with mild generalized tenderness. No mass or organomegaly. No rebound tenderness or guarding. RECTAL: The patient refused. EXTREMITIES: Without significant clubbing, cyanosis or edema. IMPRESSION: 1. Acute pancreatitis of unclear etiology, awaiting lipid profile results. 2. Known history of bronchial asthma with bronchitis. 3. Reexacerbation of peptic ulcer disease. SUGGESTION: 1. Continue current management. 2. Follow up cancer markers as well as lipid profile and serum lipase and amylase level. 3. Keep the patient NPO until her lipase is normal or near normal. 4. Further recommendation to follow. Cheryl Short MD
--- NOTE | 2017-06-27 03:08 | CON ---
DATE: 06/24/[address] Shotr to Dr. David Ambrose. I was called for GI consultation by the admitting MD. The patient is seen and fully examined on 06/24/2017 as requested by the admitting medical staff. The entire chart is reviewed including, but not limited to the most recent lab and radiology study results, current and the previous medication list, current and the previous medical events, as well as allergy to medication list. Case discussed at length with the staff in the floor on 06/24/2017 before and after my consultations. HISTORY OF PRESENT ILLNESS: This is a 47-year-old female, who was admitted to the hospital through the emergency room with a complaint of severe lower abdominal pain, radiates to the lower back for about one week prior to her admission with postprandial abdominal distention, severe diarrhea with intermittent periods of nausea and vomiting, but no reported actual chest pain, shortness of breath, palpitations, chills or fever recently. PAST MEDICAL HISTORY: Including but not limited to, 1. Bronchial asthma. 2. Bronchitis. 3. Peptic ulcer disease by history. FAMILY HISTORY: Unknown. SOCIAL HISTORY: Positive for occasional alcohol intake as well as smoking marihuana. CURRENT MEDICATIONS: Medication lists were reviewed. ALLERGIES TO MEDICATIONS: UNCLEAR. After being admitted to the hospital, the patient was found to have mildly elevated white blood cells of her regular baseline with mildly lower hemoglobin and hematocrit than her baseline. PHYSICAL EXAMINATION: GENERAL/VITAL SIGNS: A 47-year-old female with low-grade temperature of 99.1, pulse of 92, respiratory rate of 20 to 22 with a blood pressure of 136/86, complaining of severe crampy abdominal pain. HEENT: Shows mildly pale dry oral mucous membrane. Nonicteric sclerae. LYMPH NODES: No lymphadenitis or lymphadenopathy. LUNGS: Scattered mild crepitation with decreased air entry at bases. HEART: Positive S1 and S2 with increased rate. ABDOMEN: Soft. Mildly obese. Mild distention and generalized tenderness, but mainly in the midepigastric and left and right lower quadrant area. No mass or organomegaly. No rebound tenderness or guarding. RECTAL: The patient refused. EXTREMITIES: Without significant clubbing, cyanosis, or edema. NEUROLOGIC: No reported neurological deficits, sensory or motor. No focal deficits reported recently. VASCULAR: Peripheral pulses are present bilaterally. IMPRESSION: 1. Re-exacerbation of peptic ulcer disease, to rule out gastric versus duodenal ulcer. 2. Due to the elevated lipase and amylase level, an acute pancreatitis of unclear etiology is diagnosed. 3. Known history of bronchial asthma with bronchitis. 4. To rule out gastric versus duodenal ulcer. SUGGESTIONS: 1. Agree with your plan. 2. Keep the patient n.p.o. until serum lipase and amylase level are normal or near normal. 3. Rehydration. 4. Proton pump inhibitors IV. 5. Cancer markers including CEA and CA19-9. 6. Lipid profile. 7. Endoscopic evaluation of the GI tract as needed once the patient is more stable clinically. 8. Further recommendation to follow and the patient may need MRCP. Thank you for letting me to participate in your patient's case management. Cheryl Short MD
[2017-06-27 08:08] LABS: ALB/GLOB RATIO 1.2 (1.0-2.1); ALBUMIN 3.9 g/dL (3.5-5.0); ALT/SGPT 65 U/L (9-52); AMYLASE 103 U/L (30-110); AST/SGOT 25 U/L (14-36); BLOOD UREA NITROGEN 16 mg/dL (7-17); CALCIUM 8.8 mg/dl (8.6-10.4); GFR AFRICAN-AMERICAN > 60; GFR NON-AFRICAN AMERICAN > 60; LIPASE 556 U/L (23-300)
[2017-06-27 08:19] LABS: HEMOGLOBIN 14.8 g/dL (11.0-16.0); MEAN CELL VOLUME 93.5 fL (81.0-99.0); MEAN CORPUSCULAR HEMOGLOBIN 33.4 pg (27.0-31.0); MEAN CORPUSCULAR HGB CONC 35.7 g/dL (33.0-37.0); MEAN PLATELET VOLUME 7.8 fL (7.2-11.7); RBC 4.45 Mil/uL (3.80-5.20); RED CELL DISTRIBUTION WIDTH 13.5 % (11.5-14.5); WHITE BLOOD COUNT 10.6 K/uL (4.8-10.8)
[2017-06-27] MEDS: Oxycodone/Acetaminophen 5/325 mg Tab PO PRN ×2 (10:07→18:51)
[2017-06-27] MEDS: Enoxaparin 40 mg Syringe SC SCH (10:08)
[2017-06-27] MEDS ORDERED: Magnesium Citrate Oral SOL (300 ml) PO ONE (13:00)
--- NOTE | 2017-06-27 15:41 | PN ---
DATE: 06/27/2017 LOCATION: 369, bed B. SUBJECTIVE: This is a 47 years female, seen and examined in rounds with intermittent period of still abdominal pain, but less than before with nausea and mild dyspepsia, appears to be somewhat mildly restless with less shortness of breath; however, the patient denies any actual chest pain, chills or fever, cough or vomiting. The entire chart is reviewed including, but not limited to the most recent lab and radiology study results, current and the previous medication list, current and previous medical events. Case discussed with the staff at length. Most recent lab results from today showed normal CBC, but with thrombocytosis of 480 with ALT elevated at 65, alkaline phosphatase 195 with normal lipid profile. Today's amylase normal at 103 and platelets went down to 556. PHYSICAL EXAMINATION: GENERAL: A 47 years female, appears to be awake, alert, and oriented. VITAL SIGNS: Afebrile with pulse of 70, respiratory rate 20 to 22, and blood pressure 130/82. HEENT: Showed mildly pale, dry oral mucoid membrane. Nonicteric sclerae. LUNGS: Few scattered crepitation. Decreased air entry at base. HEART: Positive S1 and S2. ABDOMEN: Soft. Bowel sounds are present. No mass or organomegaly. No rebound tenderness or guarding but generalized tenderness. RECTAL: The patient refused. EXTREMITIES: With slight lower extremity edematous changes. No clubbing or cyanosis and no reported cellulitis. NEUROLOGIC: No reported new neurological deficits, sensory or motor. IMPRESSION: 1. Acute pancreatitis. 2. Exacerbation of peptic ulcer disease. 3. Known history of bronchial asthma with bronchitis. SUGGESTION: 1. Continue current management. 2. Repeat gradually. 3. The patient may need endoscopic evaluation of upper GI tract due to her persistent abdominal pain. 4. MRCP to be scheduled due to the patient's persistent epigastric pain. 5. Further recommendations to follow. Cheryl Short MD
[2017-06-27] MEDS ORDERED: Albuterol 0.083% Inhal Sol (2.5 mg/3 mL) UD IH PRN (18:45)
[2017-06-27] MEDS: Fluticasone-Salmeterol 250-50mcg Diskus INH SCH (19:47)
--- NOTE | 2017-06-27 22:55 | CP.PCM.PN ---
Subjective - Date & Time of Evaluation Date of Evaluation: 06/27/17 Time of Evaluation: 18:40 - Subjective Subjective: Pt seen and examined at bedside, is improving, amylase is improving, pt is for endoscopy tomorrow am Objective - Vital Signs/Intake and Output Vital Signs (last 24 hours): Temp Pulse Resp BP Pulse Ox 98.1 F 76 20 125/85 99 06/27/17 09:05 06/27/17 09:05 06/27/17 09:05 06/27/17 09:05 06/27/17 09:05 Intake and Output: 06/27/17 06/28/17 18:59 06:59 Intake Total 480 450 Balance 480 450 - Medications Medications: Current Medications Albuterol Sulfate (Albuterol 0.083% Inhal Emily (2.5 Mg/3 Ml) Ud) 2.5 mg IH RQ4 PRN PRN Reason: Shortness of Breath Enoxaparin Sodium (Lovenox) 40 mg SC DAILY [facility] Last Admin: 06/27/17 10:08 Dose: 40 mg Famotidine (Pepcid) 20 mg PO BID [facility] Last Admin: 06/27/17 17:13 Dose: 20 mg Montelukast Sodium (Singulair) 10 mg PO HS [facility] Last Admin: 06/27/17 21:03 Dose: 10 mg Oxycodone/Acetaminophen (Percocet 5/325 Mg Tab) 2 tab PO Q4H PRN PRN Reason: pain Stop: 06/30/17 18:33 Last Admin: 06/27/17 18:51 Dose: 2 tab Fluticasone/Salmeterol (Advair Diskus 250/50) 1 puff INH RQ12 [facility] Last Admin: 06/27/17 19:47 Dose: Not Given Zolpidem Tartrate (Ambien) 5 mg PO HS PRN PRN Reason: Insomnia Last Admin: 06/27/17 00:10 Dose: 5 mg - Labs Labs: 06/27/17 07:43 06/27/17 07:43 PT 11.0 SECONDS (9.7-12.2) 06/24/17 19:55 INR 1.0 06/24/17 19:55 APTT 27 SECONDS (21-34) 06/24/17 19:55 - Constitutional Appears: No Acute Distress - Head Exam Head Exam: ATRAUMATIC, NORMAL INSPECTION, NORMOCEPHALIC - Eye Exam Eye Exam: EOMI, Normal appearance, PERRL Pupil Exam: NORMAL ACCOMODATION, PERRL - Respiratory Exam Respiratory Exam: Decreased Breath Sounds, Rales - Cardiovascular Exam Cardiovascular Exam: REGULAR RHYTHM, +S1, +S2. absent: Murmur - GI/Abdominal Exam GI & Abdominal Exam: Soft, Tenderness, Normal Bowel Sounds Assessment and Plan (1) Abdominal pain Status: Acute (2) Acute pancreatitis Status: Acute (3) Insomnia Status: Acute (4) Anxiety Status: Chronic (5) Low back pain Status: Chronic (6) Osteoarthritis Status: Chronic
[2017-06-28 07:45] VITALS: O2SAT 100
[2017-06-28] MEDS: Fluticasone-Salmeterol 250-50mcg Diskus INH SCH (08:35)
[2017-06-28] MEDS ORDERED: Lidocaine Hydrochloride 5 ML INJ ONE (08:42)
[2017-06-28] MEDS ORDERED: Propofol 10 mg/ml Inj (20 ML) ONE (08:42)
[2017-06-28] MEDS ORDERED: Lactated Ringer's 1,000 ML IV ONE ×2 (08:43)
[2017-06-28] MEDS: Enoxaparin 40 mg Syringe SC SCH (10:16)
[2017-06-28] MEDS: Belladonna-Phenobarbital PO SCH ×3 (10:17→17:18)
[2017-06-28] MEDS: Oxycodone/Acetaminophen 5/325 mg Tab PO PRN ×2 (14:52→22:06)
[2017-06-28 16:50] VITALS: RESP 20
[2017-06-28] MEDS: Clotrimazole/Betamethasone Cream(15 gm) TOP SCH (18:29)
[2017-06-28] MEDS: Sucralfate 1 gm/10 ml Oral Susp UD PO SCH (21:28)
--- NOTE | 2017-06-28 22:57 | CP.PCM.PN ---
Subjective - Date & Time of Evaluation Date of Evaluation: 06/28/17 Time of Evaluation: 18:50 - Subjective Subjective: pt seen and examined at bedside today Objective - Vital Signs/Intake and Output Vital Signs (last 24 hours): Temp Pulse Resp BP Pulse Ox 99.1 F 66 20 152/67 H 100 06/28/17 16:00 06/28/17 16:00 06/28/17 16:00 06/28/17 16:00 06/28/17 16:00 Intake and Output: 06/28/17 06/29/17 18:59 06:59 Intake Total 480 Balance 480 - Medications Medications: Current Medications Albuterol Sulfate (Albuterol 0.083% Inhal Emily (2.5 Mg/3 Ml) Ud) 2.5 mg IH RQ4 PRN PRN Reason: Shortness of Breath Belladonna/Phenobarbital () 1 tab PO TID [facility] Last Admin: 06/28/17 17:18 Dose: 1 tab Betamethasone/Clotrimazole (Lotrisone) 0 gm TOP BID [facility] Last Admin: 06/28/17 18:29 Dose: 1 applic Dicyclomine HCl (Bentyl) 20 mg PO BID [facility] Last Admin: 06/28/17 17:18 Dose: 20 mg Enoxaparin Sodium (Lovenox) 40 mg SC DAILY [facility] Last Admin: 06/28/17 10:16 Dose: 40 mg Famotidine (Pepcid) 20 mg PO BID [facility] Last Admin: 06/28/17 17:18 Dose: 20 mg Montelukast Sodium (Singulair) 10 mg PO HS [facility] Last Admin: 06/28/17 21:25 Dose: 10 mg Oxycodone/Acetaminophen (Percocet 5/325 Mg Tab) 2 tab PO Q4H PRN PRN Reason: pain Stop: 06/30/17 18:33 Last Admin: 06/28/17 22:06 Dose: 2 tab Fluticasone/Salmeterol (Advair Diskus 250/50) 1 puff INH RQ12 [facility] Last Admin: 06/28/17 08:35 Dose: Not Given Sucralfate (Carafate Oral Susp) 1 gm PO ACBHS [facility] Last Admin: 06/28/17 21:28 Dose: 1 gm Zolpidem Tartrate (Ambien) 5 mg PO HS PRN PRN Reason: Insomnia Last Admin: 06/28/17 22:08 Dose: 5 mg - Labs Labs: 06/27/17 07:43 06/27/17 07:43 PT 11.0 SECONDS (9.7-12.2) 06/24/17 19:55 INR 1.0 06/24/17 19:55 APTT 27 SECONDS (21-34) 06/24/17 19:55 Assessment and Plan (1) Abdominal pain Status: Acute (2) Acute pancreatitis Status: Acute (3) Insomnia Status: Acute (4) Anxiety Status: Chronic (5) Low back pain Status: Chronic (6) Osteoarthritis Status: Chronic
[2017-06-29] MEDS: Sucralfate 1 gm/10 ml Oral Susp UD PO SCH (06:35)
[2017-06-29] MEDS: Oxycodone/Acetaminophen 5/325 mg Tab PO PRN (06:40)
[2017-06-29] MEDS: Fluticasone-Salmeterol 250-50mcg Diskus INH SCH (07:53)
[2017-06-29 07:54] VITALS: BP 150/90; PULSE 77; TEMP 98.7
[2017-06-29 09:07] LABS: AMYLASE 78 U/L (30-110); LIPASE 374 U/L (23-300)
[2017-06-29] MEDS: Enoxaparin 40 mg Syringe SC SCH (09:44)
[2017-06-29] MEDS: Belladonna-Phenobarbital PO SCH ×2 (09:44→14:09)
[2017-06-29 10:23] LABS: ALB/GLOB RATIO 1.2 (1.0-2.1); ALBUMIN 3.3 g/dL (3.5-5.0); ALT/SGPT 41 U/L (9-52); AST/SGOT 22 U/L (14-36); BLOOD UREA NITROGEN 16 mg/dL (7-17); CALCIUM 8.7 mg/dl (8.6-10.4); GFR AFRICAN-AMERICAN > 60; GFR NON-AFRICAN AMERICAN > 60
[2017-06-29] MEDS: Clotrimazole/Betamethasone Cream(15 gm) TOP SCH (11:00)
[2017-06-29] MEDS ORDERED: Oxycodone/Acetaminophen 5/325 mg Tab PO PRN (12:26)
--- NOTE | 2017-06-29 15:41 | CP.PCM.PN ---
Subjective - Date & Time of Evaluation Date of Evaluation: 06/29/17 Time of Evaluation: 11:00 - Subjective Subjective: Alert and orientedx3, no sob or breathing distress. Objective - Vital Signs/Intake and Output Vital Signs (last 24 hours): Temp Pulse Resp BP Pulse Ox 98.7 F 77 20 150/90 100 06/29/17 07:51 06/29/17 07:51 06/29/17 07:51 06/29/17 07:51 06/29/17 07:51 Intake and Output: 06/29/17 06/29/17 06:59 18:59 Intake Total 880 Balance 880 - Labs Labs: 06/27/17 07:43 06/29/17 07:50 PT 11.0 SECONDS (9.7-12.2) 06/24/17 19:55 INR 1.0 06/24/17 19:55 APTT 27 SECONDS (21-34) 06/24/17 19:55 Assessment and Plan - Assessment and Plan (Free Text) Assessment: Patient admitted with acute pancreatitis, s/p EGD yesterday, seen and examined. Alert and orientedx3, denies acute pain, able to tolerate diet today.Cleared by DR Newberry for discharge on carafate and reglan for gastritis. Patient is able to tolerate bland diet. Discussed with DR Ambrose, plan to discharge home today. Advised to follow up with PMD and GI in 1-2 weeks.
--- NOTE | 2017-06-29 22:12 | PN ---
DATE: LOCATION: [facility], bed B. SUBJECTIVE: This is a 47-year-old female, post upper endoscopy yesterday, seen and examined early in rounds with significant clinical changes, but with less abdominal pain. No reported active bleeding, nausea or vomiting. Appears to be awake, alert and oriented. Tolerating oral intake well. The entire chart is reviewed including, but not limited to the most recent lab and radiology study results, current and the previous medication list, current and the previous medical events, and today's labs show blood glucose level of 112 with alkaline phosphatase of 129 and low total protein of 5.9, low albumin 3.3, but lipase still elevated at 374 with normal amylase; however, the patient is tolerating oral intake well. Pathology report from gastric mucosa, was negative for Helicobacter pylori. PHYSICAL EXAMINATION: GENERAL: A 47-year-old female. VITAL SIGNS: Afebrile with pulse of 70, respiratory rate 20 to 22, and blood pressure of 138/86. HEENT: Shows pale, dry oral mucous membrane. Nonicteric sclerae. LUNGS: Clear. Breathing sounds are present bilaterally. HEART: Positive S1 and S2. ABDOMEN: Soft. Bowel sounds are present. No mass or organomegaly. No rebound tenderness or guarding, but mild midepigastric and mid abdominal tenderness. RECTAL: The patient refused. EXTREMITIES: Without significant edema, clubbing or cyanosis. VASCULAR: Peripheral pulses are present bilaterally. NEUROLOGIC: No focal new reported neurological deficits, sensory or motor. ASSESSMENT AND PLAN: 1. Acute pancreatitis, gradually improving. 2. Gastric ulcer, nonbleeding with acute gastritis. 3. Known history of bronchial asthma with bronchitis. SUGGESTION: 1. Continue current management. 2. The patient may discharge home as is stable clinically and if okay with admitting MD, to be followed up as an outpatient and repeat upper endoscopy after two months is to be kept in mind. Cheryl Short MD
--- NOTE | 2017-06-29 23:38 | CP.PCM.DIS ---
Provider - Provider Date of Admission: 06/23/17 22:35 Attending physician: David Ambrose MD Primary care physician: David Ambrose MD Time Spent in preparation of Discharge (in minutes): 34 Diagnosis - Discharge Diagnosis (1) Abdominal pain Status: Acute (2) Acute pancreatitis Status: Acute (3) Insomnia Status: Acute (4) Anxiety Status: Chronic Priority: Medium (5) Low back pain Status: Chronic (6) Osteoarthritis Status: Chronic Priority: High Hospital Course - Lab Results Lab Results: Micro Results 06/27/17 14:34 Stool Stool Culture - Final NO SALMONELLA, SHIGELLA OR CAMPYLOBACTER ISOLATED. Most Recent Lab Values WBC 10.6 K/uL (4.8-10.8) 06/27/17 07:43 RBC 4.45 Mil/uL (3.80-5.20) 06/27/17 07:43 Hgb 14.8 g/dL (11.0-16.0) 06/27/17 07:43 Hct 41.6 % (34.0-47.0) 06/27/17 07:43 MCV 93.5 fL (81.0-99.0) 06/27/17 07:43 MCH 33.4 pg (27.0-31.0) H 06/27/17 07:43 MCHC 35.7 g/dL (33.0-37.0) 06/27/17 07:43 RDW 13.5 % (11.5-14.5) 06/27/17 07:43 Plt Count 480 K/uL (130-400) H 06/27/17 07:43 MPV 7.8 fL (7.2-11.7) 06/27/17 07:43 Neut % (Auto) 41.3 % (50.0-75.0) L 06/23/17 21:10 Lymph % (Auto) 47.1 % (20.0-40.0) H 06/23/17 21:10 Cole % (Auto) 5.5 % (0.0-10.0) 06/23/17 21:10 Eos % (Auto) 5.4 % (0.0-4.0) H 06/23/17 21:10 Baso % (Auto) 0.7 % (0.0-2.0) 06/23/17 21:10 Neut # (Auto) 5.3 K/uL (1.8-7.0) 06/23/17 21:10 Lymph # (Auto) 6.0 K/uL (1.0-4.3) H 06/23/17 21:10 Cole # (Auto) 0.7 K/uL (0.0-0.8) 06/23/17 21:10 Eos # (Auto) 0.7 K/uL (0.0-0.7) 06/23/17 21:10 Baso # (Auto) 0.1 K/uL (0.0-0.2) 06/23/17 21:10 PT 11.0 SECONDS (9.7-12.2) 06/24/17 19:55 INR 1.0 06/24/17 19:55 APTT 27 SECONDS (21-34) 06/24/17 19:55 Sodium 136 mmol/L (132-148) 06/29/17 07:50 Potassium 4.0 mmol/L (3.6-5.2) 06/29/17 07:50 Chloride 104 mmol/L (98-107) 06/29/17 07:50 Carbon Dioxide 25 mmol/L (22-30) 06/29/17 07:50 Anion Gap 11 (10-20) 06/29/17 07:50 BUN 16 mg/dL (7-17) 06/29/17 07:50 Creatinine 0.9 mg/dL (0.7-1.2) 06/29/17 07:50 Est GFR ( Amer) > 60 06/29/17 07:50 Est GFR (Non-Af Amer) > 60 06/29/17 07:50 Random Glucose 112 mg/dL (65-105) H 06/29/17 07:50 Calcium 8.7 mg/dl (8.6-10.4) 06/29/17 07:50 Total Bilirubin 0.4 mg/dL (0.2-1.3) 06/29/17 07:50 AST 22 U/L (14-36) 06/29/17 07:50 ALT 41 U/L (9-52) 06/29/17 07:50 Alkaline Phosphatase 129 U/L (38-126) H D 06/29/17 07:50 Total Protein 5.9 g/dL (6.3-8.3) L 06/29/17 07:50 Albumin 3.3 g/dL (3.5-5.0) L 06/29/17 07:50 Globulin 2.6 gm/dL (2.2-3.9) 06/29/17 07:50 Albumin/Globulin Ratio 1.2 (1.0-2.1) 06/29/17 07:50 Triglycerides 110 mg/dL (0-149) 06/26/17 08:38 Cholesterol 198 mg/dL (0-199) 06/26/17 08:38 LDL Cholesterol Direct 129 mg/dL (0-129) 06/26/17 08:38 HDL Cholesterol 42 mg/dL (30-70) 06/26/17 08:38 Amylase 78 U/L (30-110) 06/29/17 07:50 Lipase 374 U/L (23-300) H 06/29/17 07:50 Alpha Fetoprotein 2.9 ng/mL (0.0-7.5) 06/24/17 19:55 Carcinoembryonic Ag 2.3 ng/mL (0-3.0) 06/24/17 19:55 CA 19-9 Antigen 47.4 U/mL (0-37) H 06/24/17 19:55 CA 125 Antigen 10.0 U/mL (0-35) 06/24/17 19:55 Urine Color Straw (YELLOW) 06/25/17 08:05 Urine Clarity Clear (Clear) 06/25/17 08:05 Urine pH 6.0 (5.0-8.0) 06/25/17 08:05 Ur Specific [place] 1.006 (1.003-1.030) 06/25/17 08:05 Urine Protein Negative mg/dL (NEGATIVE) 06/25/17 08:05 Urine Glucose (UA) Normal mg/dL (Normal) 06/25/17 08:05 Urine Ketones Negative mg/dL (NEGATIVE) 06/25/17 08:05 Urine Blood 1+ (NEGATIVE) H 06/25/17 08:05 Urine Nitrate Negative (NEGATIVE) 06/25/17 08:05 Urine Bilirubin Negative (NEGATIVE) 06/25/17 08:05 Urine Urobilinogen Normal mg/dL (0.2-1.0) 06/25/17 08:05 Ur Leukocyte Esterase Neg Makenna/uL (Negative) 06/25/17 08:05 Urine WBC (Auto) < 1 /hpf (0-5) 06/25/17 08:05 Urine RBC (Auto) < 1 /hpf (0-3) 06/25/17 08:05 Ur Squamous Epith Cells 1 /hpf (0-5) 06/25/17 08:05 Urine Bacteria Rare (<OCC) 06/25/17 08:05 Urine HCG, Qual Negative (NEGATIVE) 06/28/17 07:04 Stool Leukocytes, Qual Negative (NEGATIVE) 06/24/17 18:40 - Hospital Course Hospital Course: Patient admitted with acute pancreatitis, s/p EGD yesterday, seen and examined today. Alert and orientedx3, denies acute pain, able to tolerate diet today.Cleared by DR Newberry for discharge on carafate and reglan for gastritis. Patient is able to tolerate bland diet. plan to discharge home today. Advised to follow up with PMD and GI in 1-2 weeks. Discharge Exam - Head Exam Head Exam: ATRAUMATIC, NORMAL INSPECTION, NORMOCEPHALIC - Eye Exam Eye Exam: EOMI, Normal appearance, PERRL Pupil Exam: NORMAL ACCOMODATION, PERRL - ENT Exam ENT Exam: Mucous Membranes Moist - Respiratory Exam Respiratory Exam: Decreased Breath Sounds - Cardiovascular Exam Cardiovascular Exam: REGULAR RHYTHM, +S1, +S2 - GI/Abdominal Exam GI & Abdominal Exam: Normal Bowel Sounds - Rectal Exam Rectal Exam: Deferred Discharge Plan - Discharge Medications Prescriptions: Sucralfate [Carafate] 1 gm PO TIDAC #90 tab - Follow Up Plan Condition: GOOD Disposition: HOME/ ROUTINE Instructions: Sucralfate (By mouth), Pantoprazole (By mouth), Pancreatitis (DC) Referrals: David Ambrose MD [Primary Care Provider] -
== END 2017-06-29 14:51 | disposition home or self-care (01) | DRG 439 ==
LOC: SUPCPDRO 19:58 → C.ER 19:58 → C.3T 22:35
PROVIDERS: ADMIT Internal Medicine; ATTEND Internal Medicine
PROC: 0DB68ZX Excision of Stomach, Via Natural or Artificial Opening Endoscopic, Diagnostic (ICD-10-PCS; principal; 2017-06-28 08:45)
DX: K85.90 Acute pancreatitis without necrosis or infection, unspecified (principal); Z68.41 Body mass index [BMI] 40.0-44.9, adult; F12.10 Cannabis abuse, uncomplicated; F41.9 Anxiety disorder, unspecified; G47.00 Insomnia, unspecified; I10 Essential (primary) hypertension; J45.909 Unspecified asthma, uncomplicated; K25.9 Gastric ulcer, unspecified as acute or chronic, without hemorrhage or perforation; K29.00 Acute gastritis without bleeding

== ENCOUNTER 2017-12-20 15:53 | Inpatient (IN) | payer MEDICARE ==
[2017-12-20] MEDS ORDERED: Albuterol-Ipratrop 3 mg / 0.5 (3 ml) UD ONE (16:12)
[2017-12-20] MEDS ORDERED: Magnesium Sulfate 1 gm in D5W 1 GM/100 ML BAG IV STA (16:15)
[2017-12-20] MEDS ORDERED: Sodium Chloride 0.9% 500 ML IV ONE (16:15)
[2017-12-20] MEDS ORDERED: Albuterol-Ipratrop 3 mg / 0.5 (3 ml) UD INH STA (16:16)
[2017-12-20] MEDS ORDERED: Albuterol 0.083% Inhal Sol (2.5 mg/3 mL) UD IH STA ×3 (16:16→17:57)
--- NOTE | 2017-12-20 16:37 | C.PDOC ---
History Of Present Illness 47 yo female with PMHX of asthma presents to ER with complaints of shortness of breath x 4 days. Patient states the symptoms are similar to prior asthma exacerbations. She was evaluated by her PMD yesterday, given a dose of IM solumedrol and prescription for predisone and amoxicillin. Patient reports no improvement, went back to office today. Patient was given 2 more nebulizer treatments and instructed to come to the ER for further evaluation. Patient also reports a non-productive cough. She denies fever/ks2arkj, chest pain, abdominal pain, nausea/vomiting, palpitations. Time Seen by Provider: 12/20/17 16:05 Chief Complaint (Nursing): Shortness Of Breath History Per: Patient History/Exam Limitations: no limitations Onset/Duration Of Symptoms: Days Current Respiratory Medications: See Home Med List Severity: Moderate Past Medical History Reviewed: Historical Data, Nursing Documentation, Vital Signs Vital Signs: Last Vital Signs Temp 98.2 F 12/21/17 15:52 Pulse 63 12/21/17 16:58 Resp 18 12/21/17 15:52 BP 147/68 12/21/17 15:52 Pulse Ox 98 12/21/17 15:52 - Medical History PMH: Asthma, Bronchitis Surgical History: No Surg Hx - [facility] Procedures EXCISION OF STOMACH, ENDO, DIAGN (06/23/17) Family History: States: No Known Family Hx - Social History Hx Tobacco Use: Yes Hx Alcohol Use: Yes (socially) Hx Substance Use: Yes (marijuana) - Immunization History Hx Tetanus Toxoid Vaccination: Yes Hx Influenza Vaccination: No Hx Pneumococcal Vaccination: Yes Review Of Systems Constitutional: Negative for: Fever Cardiovascular: Negative for: Chest Pain, Palpitations Respiratory: Positive for: Cough, Shortness of Breath, Wheezing Gastrointestinal: Negative for: Nausea, Vomiting, Abdominal Pain, Diarrhea Skin: Negative for: Rash Physical Exam - Physical Exam Appears: Well, Non-toxic, No Acute Distress Skin: Normal Color, Warm, Dry Head: Normacephalic Eye(s): bilateral: Normal Inspection Oral Mucosa: Moist Throat: Normal, No Erythema, No Exudate, No Drooling Neck: Supple Cardiovascular: Rhythm Regular Respiratory: No Accessory Muscle Use, No Rales, No Rhonchi, Wheezing (diffuse expitory wheezing B/L ), Other ((+) converstional dyspnea) Gastrointestinal/Abdominal: Normal Exam, Bowel Sounds, Soft, No Tenderness Back: Normal Inspection Extremity: Pedal Edema (trace pitting edema bilaterally), No Calf Tenderness Pulses: Left Dorsalis Pedis: Normal, Right Dorsalis Pedis: Normal Neurological/Psych: Oriented x3 ED Course And Treatment - Laboratory Results Result Diagrams: 12/20/17 16:35 12/20/17 16:35 ECG: Interpreted By Me, Viewed By Me (NSR 75 bpm, normal axis, LVH, no acute ST/ T wave changes) ECG Interpretation: No Acute Changes O2 Sat by Pulse Oximetry: 97 (RA) Pulse Ox Interpretation: Normal - Radiology CXR: Interpreted by Me, Viewed By Me CXR Interpretation: Yes: No Acute Disease. No: Infiltrates Progress Note: Blood work, UA, Upreg, CXR, EKG ordered and reviewed. Patient given IV solumedrol, IV magnesium sulfate 2G, nebulizer treatments, and IV NS bolus. Reevaluation Time: 18:20 Reassessment Condition: Improved (On reassessment, patient only minimally improved after meds. On exam, she has expiratory wheezing B/L, no accessory muslce use, speaking in full sentences. Will need obs tele for asthma exacerbation.) - Physician Consult Information Physician Contacted: David Ambrose Outcome Of Conversation: Discussed patient with PMD, agrees with obs tele for asthma exacerbation. Critical Care Time - Critical Care Note Total Time (in mins): 40 Documented critical care: time excludes all time spent performing seperately billable procedures. Disposition - Disposition Disposition: HOSPITALIZED Disposition Time: 18:27 Condition: STABLE - Clinical Impression Clinical Impression: Asthma with acute exacerbation, Dyspnea - Scribe Statement The provider has reviewed the documentation as recorded by the Eduar Abdi Provider Attestation: All medical record entries made by the Eduar were at my direction and personally dictated by me. I have reviewed the chart and agree that the record accurately reflects my personal performance of the history, physical exam, medical decision making, and the department course for this patient. I have also personally directed, reviewed, and agree with the discharge instructions and disposition.
[2017-12-20] MEDS ORDERED: Magnesium Sulfate 1 gm in D5W 2 GM/200 ML BAG IVPB ONE (16:38)
[2017-12-20] MEDS ORDERED: Sodium Chloride 0.9% 1,000 ML ONE (16:38)
--- NOTE | 2017-12-20 16:40 | C.PDOC ---
Time Seen by Provider: 12/20/17 16:05 Chief Complaint (Nursing): Shortness Of Breath Past Medical History Vital Signs: Last Vital Signs Temp 99 F 12/20/17 16:04 Pulse 77 12/20/17 16:04 Resp 21 12/20/17 16:04 BP 124/78 12/20/17 16:04 Pulse Ox 97 12/20/17 16:04 - Medical History PMH: Asthma, Bronchitis Denies: Chronic Kidney Disease - [facility] Procedures EXCISION OF STOMACH, ENDO, DIAGN (06/23/17) Family History: States: Unknown Family Hx - Social History Hx Tobacco Use: Yes Hx Alcohol Use: Yes (socially) Hx Substance Use: Yes (marijuana) - Immunization History Hx Tetanus Toxoid Vaccination: Yes Hx Influenza Vaccination: No Hx Pneumococcal Vaccination: Yes ED Course And Treatment O2 Sat by Pulse Oximetry: 97 Disposition - Disposition
[2017-12-20 16:41] LABS: BASO % 0.3 % (0.0-2.0); HEMOGLOBIN 13.5 g/dL (11.0-16.0); LYMPH # 2.3 K/uL (1.0-4.3); LYMPH % 13.7 % (20.0-40.0); MEAN CELL VOLUME 94.6 fL (81.0-99.0); MEAN CORPUSCULAR HGB CONC 33.9 g/dL (33.0-37.0); MEAN PLATELET VOLUME 7.7 fL (7.2-11.7); MONO # 0.6 K/uL (0.0-0.8); MONO % 3.6 % (0.0-10.0); NEUT # 13.6 K/uL (1.8-7.0); NEUT % 82.4 % (50.0-75.0); RBC 4.21 Mil/uL (3.80-5.20); RED CELL DISTRIBUTION WIDTH 13.6 % (11.5-14.5)
[2017-12-20 16:42] LABS: WHITE BLOOD COUNT 16.5 K/uL (4.8-10.8)
[2017-12-20 16:50] LABS: ALB/GLOB RATIO 1.5 (1.0-2.1); ALBUMIN 4.1 g/dL (3.5-5.0); ALT/SGPT 26 U/L (9-52); AST/SGOT 14 U/L (14-36); BLOOD UREA NITROGEN 13 mg/dL (7-17); CALCIUM 9.3 mg/dl (8.6-10.4); GFR AFRICAN-AMERICAN > 60; GFR NON-AFRICAN AMERICAN > 60
[2017-12-20 17:02] LABS: B-TYPE NATRIURETIC PEPTIDE 337 pg/mL (0-450)
[2017-12-20] MEDS ORDERED: Albuterol 0.083% Inhal Sol (2.5 mg/3 mL) UD ONE (18:28)
[2017-12-20] MEDS ORDERED: Albuterol 0.083% Inhal Sol (2.5 mg/3 mL) UD IH PRN (18:46)
[2017-12-20 19:24] LABS: HCG,QUALITATIVE URINE NEGATIVE (NEGATIVE); SQUAMOUS EPITHIAL 10 /hpf (0-5); URINE BACTERIA RARE (<OCC); URINE BILIRUBIN NEGATIVE (NEGATIVE); URINE BLOOD 2+ (NEGATIVE); URINE CLARITY Hazy (Clear); URINE COLOR Yellow (YELLOW); URINE GLUCOSE (UA) NORMAL (Normal); URINE LEUKOCYTE ESTERASE NEG Leu/uL (Negative); URINE PROTEIN NEGATIVE (NEGATIVE); URINE UROBILINOGEN NORMAL mg/dL (0.2-1.0)
[2017-12-20] MEDS: Oxycodone/Acetaminophen 5/325 mg Tab PO PRN (20:20)
[2017-12-20] MEDS: Fluticasone-Salmeterol 250-50mcg Diskus INH SCH (21:50)
--- NOTE | 2017-12-20 23:14 | CP.PCM.HP ---
History of Present Illness - History of Present Illness History of Present Illness: CC: cough, shortness of breath wheezing x 1 week HPI: Pt is a 47 year old AA female well known to me with h/o bronchial asthma, HTN,osteoarthritis, avascular necrosis of right hip who has been under my treatment out pateint since 1 week for excerbeartion of bronchial asthama, she c /o cough, congestion, shortness of breath and wheezing , not getting better with usual treatment,there is no nausea, vomitting diarhhea, she has b/l hip pain Present on Admission - Present on Admission Any Indicators Present on Admission: Yes Review of Systems - Review of Systems Systems not reviewed;Unavailable: Acuity of Condition - Constitutional Constitutional: Fatigue, Weakness - EENT Eyes: absent: As Per HPI, Blind Spots, Blurred Vision, Change in Vision, Decreased Night Vision, Diplopia, Discharge, Dry Eye, Exophthalmos, Floaters, Irritation, Itchy Eyes, Loss of Peripheral Vision, Pain, Photophobia, Requires Corrective Lenses, Sees Flashes, Spots in Vision, Tunnel Vision, Other Visual Disturbances, Loss of Vision, Other Ears: absent: As Per HPI, Decreased Hearing, Ear Discharge, Ear Pain, Tinnitus, Abnormal Hearing, Disequilibrium, Dizziness, Other - Cardiovascular Cardiovascular: Dyspnea - Respiratory Respiratory: Cough, Dyspnea - Gastrointestinal Gastrointestinal: Change in Stool Character - Genitourinary Genitourinary: absent: As Per HPI, Change in Urinary Stream, Difficulty Urinating, Dysuria, Flank Pain, Hematuria, Pyuria, Nocturia, Urinary Incontinence, Urinary Frequency, Urinary Hesitance, Urinary Urgency, Voiding Freq/Small Amts, Freq UTI, Hx Renal/Bladder Calculi, Hx /Renal Surgery, Bladder Distension, Other - Musculoskeletal Musculoskeletal: Arthralgias, Limited Range of Motion, Muscle Weakness - Integumentary Integumentary: absent: As Per HPI, Acne, Alopecia, Bleeding Lesions, Change in Hair, Change in Nails, Change in Pigmentation, Changing Lesions, Dry Skin, Erythema, Furuncle, Hirsutism, Lesions, New Lesions, Non-Healing Lesions, Photosensitivity, Pruritus, Rash, Skin Pain, Skin Ulcer, Sores, Striae, Swelling , Unusual Bruising, Wounds, Jaundice, Other - Neurological Neurological: absent: As Per HPI, Abnormal Gait, Abnormal Hearing, Abnormal Movements, Abnormal Speech, Behavioral Changes, Burning Sensations, Confusion, Convulsions, Disequilibrium, Dizziness, Numbness, Focal Weakness, Frequent Falls , Headaches, Lack of Coordination, Loss of Vision, Memory Loss, Paresthesias, Radicular Pain, Restless Legs, Sensory Deficit, Syncope, Tingling, Tremor, Vertigo, Weakness, Other Visual Disturbances, Other Past Patient History - Infectious Disease Hx of Infectious Diseases: None - Past Medical History & Family History Past Medical History?: Yes - Past Social History Smoking Status: Former Smoker - CARDIAC Hx Cardiac Disorders: No - PULMONARY Hx Respiratory Disorders: Yes Hx Asthma: Yes Hx Bronchitis: Yes Other/Comment: Former smoker - NEUROLOGICAL Hx Neurological Disorder: No - HEENT Hx HEENT Problems: No - RENAL Hx Chronic Kidney Disease: No - ENDOCRINE/METABOLIC Hx Endocrine Disorders: No - HEMATOLOGICAL/ONCOLOGICAL Hx Blood Disorders: No - INTEGUMENTARY Hx Dermatological Problems: Yes Hx Eczema: Yes - MUSCULOSKELETAL/RHEUMATOLOGICAL Hx Musculoskeletal Disorders: Yes Hx Arthritis: Yes Hx Degenerative Joint Disease: Yes (bilat hips) Hx Falls: Yes (once in the last 6 months) - GASTROINTESTINAL Hx Gastrointestinal Disorders: Yes Hx Constipation: Yes Hx Ulcer: Yes - GENITOURINARY/GYNECOLOGICAL Hx Genitourinary Disorders: No - PSYCHIATRIC Hx Psychophysiologic Disorder: No Hx Substance Use: Yes (marijuana occasionally) - SURGICAL HISTORY Hx Surgeries: Yes Hx Section: Yes Hx Orthopedic Surgery: Yes (LEFT orif) - ANESTHESIA Hx Anesthesia: Yes Hx Anesthesia Reactions: No Hx Malignant Hyperthermia: No Meds Allergies/Adverse Reactions: Allergies Allergy/AdvReac Type Severity Reaction Status Date / Time pantoprazole sodium Allergy Verified 06/23/17 20:17 [From Protonix] shellfish derived Allergy Verified 06/23/17 20:17 Physical Exam - Head Exam Head Exam: ATRAUMATIC, NORMAL INSPECTION, NORMOCEPHALIC - Eye Exam Eye Exam: Normal appearance - ENT Exam ENT Exam: Mucous Membranes Moist, Normal Exam - Respiratory Exam Respiratory Exam: Decreased Breath Sounds, Rales, Rhonchi, Wheezes - Cardiovascular Exam Cardiovascular Exam: +S1, +S2 - GI/Abdominal Exam GI & Abdominal Exam: Normal Bowel Sounds, Soft. absent: Tenderness - Rectal Exam Rectal Exam: Deferred Results - Vital Signs Recent Vital Signs: Last Vital Signs Temp 98.6 F 12/20/17 20:05 Pulse 88 12/20/17 21:53 Resp 18 12/20/17 20:05 BP 127/65 12/20/17 20:05 Pulse Ox 98 12/20/17 20:05 - Labs Result Diagrams: 12/20/17 16:35 12/20/17 16:35 Labs: Laboratory Results - last 24 hr 12/20/17 12/20/17 12/20/17 16:35 16:35 19:10 WBC 16.5 H D RBC 4.21 Hgb 13.5 Hct 39.8 MCV 94.6 MCH 32.0 H MCHC 33.9 RDW 13.6 Plt Count 296 D MPV 7.7 Neut % (Auto) 82.4 H Lymph % (Auto) 13.7 L [place] % (Auto) 3.6 Eos % (Auto) 0.0 Baso % (Auto) 0.3 Neut # (Auto) 13.6 H Lymph # (Auto) 2.3 [place] # (Auto) 0.6 Eos # (Auto) 0.0 Baso # (Auto) 0.0 Sodium 143 Potassium 3.9 Chloride 109 H Carbon Dioxide 22 Anion Gap 16 BUN 13 Creatinine 0.9 Est GFR ( Amer) > 60 Est GFR (Non-Af Amer) > 60 Random Glucose 113 H Calcium 9.3 Total Bilirubin 0.5 AST 14 D ALT 26 Alkaline Phosphatase 74 Troponin I < 0.0120 NT-Pro-B Natriuret Pep 337 Total Protein 6.9 Albumin 4.1 Globulin 2.7 Albumin/Globulin Ratio 1.5 Urine Color Yellow Urine Clarity Hazy Urine pH 5.0 Ur Specific [place] 1.019 Urine Protein Negative Urine Glucose (UA) Normal Urine Ketones Negative Urine Blood 2+ H Urine Nitrate Negative Urine Bilirubin Negative Urine Urobilinogen Normal Ur Leukocyte Esterase Neg Urine WBC (Auto) 1 Urine RBC (Auto) 6 H Ur Squamous Epith Cells 10 H Urine Bacteria Rare Urine HCG, Qual Negative Assessment & Plan (1) Allergic rhinitis Status: Acute (2) Asthma with acute exacerbation Status: Acute (3) Anxiety Status: Chronic Priority: Medium (4) Osteoarthritis Status: Chronic Priority: High
[2017-12-21] MEDS: Docusate-Senna 50 mg-8.6 mg Tab PO SCH ×2 (09:14→22:16)
[2017-12-21] MEDS: Enoxaparin 40 mg Syringe SC SCH (09:15)
[2017-12-21] MEDS: Oxycodone/Acetaminophen 5/325 mg Tab PO PRN ×2 (09:29→16:04)
--- NOTE | 2017-12-21 09:43 | RAD ---
Date of service: 12/20/2017 PROCEDURE: CHEST RADIOGRAPH, 1 VIEW HISTORY: SOB COMPARISON: Portable chest 06/23/2017 FINDINGS: LUNGS: Unremarkable intrinsic signal. No definite tear identified. PLEURA: No pneumothorax or pleural fluid seen. CARDIOVASCULAR: Normal. OSSEOUS STRUCTURES: No significant abnormalities. VISUALIZED UPPER ABDOMEN: Normal. OTHER FINDINGS: None. IMPRESSION: No interval acute cardiopulmonary disease appreciated.
[2017-12-21] MEDS: Fluticasone-Salmeterol 250-50mcg Diskus INH SCH ×2 (14:00→19:28)
[2017-12-21] MEDS ORDERED: Albuterol 0.083% Inhal Sol (2.5 mg/3 mL) UD IH SCH ×2 (14:00→16:00)
[2017-12-21] MEDS: Albuterol 0.083% Inhal Sol (2.5 mg/3 mL) UD IH SCH ×3 (16:14→23:34)
[2017-12-21] MEDS: Amoxicillin-Clav 875-125 mg Tab PO SCH (17:36)
[2017-12-22] MEDS: Albuterol 0.083% Inhal Sol (2.5 mg/3 mL) UD IH SCH ×6 (03:09→23:31)
[2017-12-22] MEDS: Fluticasone-Salmeterol 250-50mcg Diskus INH SCH ×2 (07:05→19:39)
--- NOTE | 2017-12-22 09:03 | CP.PCM.PN ---
Subjective - Date & Time of Evaluation Date of Evaluation: 12/21/17 Time of Evaluation: 19:00 - Subjective Subjective: Pt was seen and examined during routine follow up today Objective - Vital Signs/Intake and Output Vital Signs (last 24 hours): Temp Pulse Resp BP Pulse Ox 98.2 F 84 18 141/76 99 12/22/17 08:08 12/22/17 08:08 12/22/17 08:08 12/22/17 08:08 12/22/17 08:08 Intake and Output: 12/22/17 12/22/17 06:59 18:59 Intake Total 120 Balance 120 - Medications Medications: Current Medications Albuterol Sulfate (Albuterol 0.083% Inhal Emily (2.5 Mg/3 Ml) Ud) 3 mg IH RQ4 [facility] Last Admin: 12/22/17 07:05 Dose: 3 mg Amoxicillin/Clavulanate Potassium (Augmentin 875 Mg-125 Mg Tab) 1 tab PO BID [facility] PRN Reason: Protocol Last Admin: 12/21/17 17:36 Dose: 1 tab Enoxaparin Sodium (Lovenox) 40 mg SC DAILY [facility] Last Admin: 12/21/17 09:15 Dose: 40 mg Famotidine (Pepcid) 20 mg IVP DAILY [facility] Last Admin: 12/21/17 14:52 Dose: 20 mg Methylprednisolone (Solu-Medrol) 60 mg IV Q12 [facility] Last Admin: 12/21/17 21:00 Dose: 60 mg Metoclopramide HCl (Reglan) 10 mg PO AC [facility] Last Admin: 12/22/17 08:20 Dose: 10 mg Montelukast Sodium (Singulair) 10 mg PO HS [facility] Last Admin: 12/21/17 21:01 Dose: 10 mg Oxycodone/Acetaminophen (Percocet 5/325 Mg Tab) 1 tab PO Q6H PRN PRN Reason: Pain, Mild (1-3) Stop: 12/23/17 18:48 Last Admin: 12/21/17 16:04 Dose: 1 tab Fluticasone/Salmeterol (Advair Diskus 250/50) 1 puff INH RQ12 [facility] Last Admin: 12/22/17 07:05 Dose: 1 puff Senna/Docusate Sodium (Senokot S 50 Mg-8.6 Mg) 1 tab PO BID [facility] Last Admin: 12/21/17 22:16 Dose: Not Given Sucralfate (Carafate Tab) 1 gm PO TIDAC [facility] Last Admin: 12/22/17 08:20 Dose: 1 gm Zolpidem Tartrate (Ambien) 5 mg PO HS PRN PRN Reason: Insomnia Last Admin: 12/22/17 00:27 Dose: 5 mg - Labs Labs: 12/20/17 16:35 12/20/17 16:35 Assessment and Plan (1) Allergic rhinitis Status: Acute (2) Asthma with acute exacerbation Status: Acute (3) Anxiety Status: Chronic (4) Osteoarthritis Status: Chronic
[2017-12-22] MEDS: Enoxaparin 40 mg Syringe SC SCH (09:34)
[2017-12-22] MEDS: Amoxicillin-Clav 875-125 mg Tab PO SCH ×2 (09:34→17:53)
[2017-12-22] MEDS: Docusate-Senna 50 mg-8.6 mg Tab PO SCH ×2 (09:35→17:53)
[2017-12-22] MEDS: Oxycodone/Acetaminophen 5/325 mg Tab PO PRN ×2 (12:40→20:15)
--- NOTE | 2017-12-22 21:33 | CARD ---
APPROVED REPORT Date of service: 12/20/2017 EKG Measurement Heart [id number] ID [id number] <Conclusion> Normal sinus rhythm Minimal voltage criteria for LVH, may be normal variant Borderline ECG
--- NOTE | 2017-12-22 23:58 | CP.PCM.PN ---
Subjective - Date & Time of Evaluation Date of Evaluation: 12/22/17 Time of Evaluation: 18:40 - Subjective Subjective: Pt seen and examined at bedside Objective - Vital Signs/Intake and Output Vital Signs (last 24 hours): Temp Pulse Resp BP Pulse Ox 98.3 F 61 20 151/77 H 99 12/22/17 15:35 12/22/17 15:35 12/22/17 15:35 12/22/17 15:35 12/22/17 15:35 - Medications Medications: Current Medications Albuterol Sulfate (Albuterol 0.083% Inhal Emily (2.5 Mg/3 Ml) Ud) 3 mg IH RQ4 [facility] Last Admin: 12/22/17 23:31 Dose: 2.5 mg Amoxicillin/Clavulanate Potassium (Augmentin 875 Mg-125 Mg Tab) 1 tab PO BID [facility] PRN Reason: Protocol Last Admin: 12/22/17 17:53 Dose: 1 tab Enoxaparin Sodium (Lovenox) 40 mg SC DAILY [facility] Last Admin: 12/22/17 09:34 Dose: 40 mg Famotidine (Pepcid) 20 mg IVP DAILY [facility] Last Admin: 12/22/17 09:34 Dose: 20 mg Methylprednisolone (Solu-Medrol) 60 mg IV Q12 [facility] Last Admin: 12/22/17 22:29 Dose: 60 mg Metoclopramide HCl (Reglan) 10 mg PO AC [facility] Last Admin: 12/22/17 17:53 Dose: 10 mg Montelukast Sodium (Singulair) 10 mg PO HS [facility] Last Admin: 12/22/17 22:29 Dose: 10 mg Oxycodone/Acetaminophen (Percocet 5/325 Mg Tab) 1 tab PO Q6H PRN PRN Reason: Pain, Mild (1-3) Stop: 12/23/17 18:48 Last Admin: 12/22/17 20:15 Dose: 1 tab Fluticasone/Salmeterol (Advair Diskus 250/50) 1 puff INH RQ12 [facility] Last Admin: 12/22/17 19:39 Dose: 1 puff Senna/Docusate Sodium (Senokot S 50 Mg-8.6 Mg) 1 tab PO BID [facility] Last Admin: 12/22/17 17:53 Dose: 1 tab Sucralfate (Carafate Tab) 1 gm PO TIDAC [facility] Last Admin: 12/22/17 17:53 Dose: 1 gm Zolpidem Tartrate (Ambien) 5 mg PO HS PRN PRN Reason: Insomnia Last Admin: 12/22/17 22:29 Dose: 5 mg - Labs Labs: 12/20/17 16:35 12/20/17 16:35 Assessment and Plan (1) Allergic rhinitis Status: Acute (2) Asthma with acute exacerbation Status: Acute (3) Anxiety Status: Chronic (4) Osteoarthritis Status: Chronic
[2017-12-23] MEDS: Albuterol 0.083% Inhal Sol (2.5 mg/3 mL) UD IH SCH ×6 (03:18→23:29)
[2017-12-23] MEDS: Docusate-Senna 50 mg-8.6 mg Tab PO SCH ×2 (09:54→17:29)
[2017-12-23] MEDS: Amoxicillin-Clav 875-125 mg Tab PO SCH ×2 (09:54→17:29)
[2017-12-23] MEDS: Enoxaparin 40 mg Syringe SC SCH (09:54)
[2017-12-23] MEDS: Oxycodone/Acetaminophen 5/325 mg Tab PO PRN ×3 (11:21→18:23)
[2017-12-23] MEDS: Promethazine 6.25 MG/5 ML CUP PO PRN ×2 (13:30→23:51)
[2017-12-23] MEDS: Fluticasone-Salmeterol 250-50mcg Diskus INH SCH (19:33)
--- NOTE | 2017-12-24 01:36 | CP.PCM.PN ---
Subjective - Date & Time of Evaluation Date of Evaluation: 12/23/17 Time of Evaluation: 18:40 - Subjective Subjective: Pt seen and examined at bedside Objective - Vital Signs/Intake and Output Vital Signs (last 24 hours): Temp Pulse Resp BP Pulse Ox 98.4 F 51 L 20 134/77 96 12/23/17 23:13 12/23/17 23:13 12/23/17 23:13 12/23/17 23:13 12/23/17 23:13 Intake and Output: 12/23/17 12/24/17 18:59 06:59 Intake Total 240 Balance 240 - Medications Medications: Current Medications Albuterol Sulfate (Albuterol 0.083% Inhal Emily (2.5 Mg/3 Ml) Ud) 3 mg IH RQ4 [facility] Last Admin: 12/23/17 23:29 Dose: 2.5 mg Amoxicillin/Clavulanate Potassium (Augmentin 875 Mg-125 Mg Tab) 1 tab PO BID [facility] PRN Reason: Protocol Last Admin: 12/23/17 17:29 Dose: 1 tab Enoxaparin Sodium (Lovenox) 40 mg SC DAILY [facility] Last Admin: 12/23/17 09:54 Dose: 40 mg Famotidine (Pepcid) 20 mg IVP DAILY [facility] Last Admin: 12/23/17 09:54 Dose: 20 mg Lactulose (Enulose) 20 gm PO HS [facility] Last Admin: 12/23/17 22:44 Dose: 20 gm Methylprednisolone (Solu-Medrol) 60 mg IV Q12 [facility] Last Admin: 12/23/17 22:44 Dose: 60 mg Metoclopramide HCl (Reglan) 10 mg PO AC [facility] Last Admin: 12/23/17 17:29 Dose: 10 mg Montelukast Sodium (Singulair) 10 mg PO HS [facility] Last Admin: 12/23/17 22:44 Dose: 10 mg Oxycodone/Acetaminophen (Percocet 5/325 Mg Tab) 1 tab PO Q6H PRN PRN Reason: Pain, Mild (1-3) Stop: 12/26/17 18:19 Last Admin: 12/23/17 18:23 Dose: 1 tab Promethazine HCl (Phenergan Syrup) 6.25 mg PO Q6 PRN PRN Reason: Cough Last Admin: 12/23/17 23:51 Dose: 6.25 mg Fluticasone/Salmeterol (Advair Diskus 250/50) 1 puff INH RQ12 [facility] Last Admin: 12/23/17 19:33 Dose: 1 puff Senna/Docusate Sodium (Senokot S 50 Mg-8.6 Mg) 1 tab PO BID [facility] Last Admin: 12/23/17 17:29 Dose: 1 tab Sucralfate (Carafate Tab) 1 gm PO TIDAC [facility] Last Admin: 12/23/17 17:29 Dose: 1 gm Zolpidem Tartrate (Ambien) 5 mg PO HS PRN PRN Reason: Insomnia Last Admin: 12/23/17 22:44 Dose: 5 mg - Labs Labs: 12/20/17 16:35 12/20/17 16:35 Assessment and Plan (1) Allergic rhinitis Status: Acute (2) Asthma with acute exacerbation Status: Acute (3) Anxiety Status: Chronic (4) Osteoarthritis Status: Chronic
[2017-12-24] MEDS: Albuterol 0.083% Inhal Sol (2.5 mg/3 mL) UD IH SCH ×5 (08:25→20:20)
[2017-12-24] MEDS: Fluticasone-Salmeterol 250-50mcg Diskus INH SCH ×2 (08:26→20:20)
[2017-12-24] MEDS: Amoxicillin-Clav 875-125 mg Tab PO SCH ×2 (10:54→17:48)
[2017-12-24] MEDS: Docusate-Senna 50 mg-8.6 mg Tab PO SCH ×2 (10:54→17:49)
[2017-12-24] MEDS: Enoxaparin 40 mg Syringe SC SCH (10:54)
[2017-12-24] MEDS: Oxycodone/Acetaminophen 5/325 mg Tab PO PRN ×2 (10:59→19:37)
[2017-12-24] MEDS: Promethazine 6.25 MG/5 ML CUP PO PRN ×2 (10:59→21:36)
[2017-12-24] MEDS ORDERED: Acetylcysteine 20% Inhal Soln (4ml) INH ONE (16:00)
[2017-12-24 18:12] VITALS: RESP 20
--- NOTE | 2017-12-25 00:21 | CP.PCM.PN ---
Subjective - Date & Time of Evaluation Date of Evaluation: 12/24/17 Time of Evaluation: 18:35 - Subjective Subjective: PT SEEN AND EXAMINED AT BEDSIDE Objective - Vital Signs/Intake and Output Vital Signs (last 24 hours): Temp Pulse Resp BP Pulse Ox 98.4 F 64 20 144/77 98 12/24/17 15:15 12/24/17 15:15 12/24/17 15:15 12/24/17 15:15 12/24/17 15:15 Intake and Output: 12/24/17 12/25/17 18:59 06:59 Intake Total 920 Balance 920 - Medications Medications: Current Medications Albuterol Sulfate (Albuterol 0.083% Inhal Emily (2.5 Mg/3 Ml) Ud) 3 mg IH RQ4 [facility] Last Admin: 12/24/17 20:20 Dose: 2.5 mg Amoxicillin/Clavulanate Potassium (Augmentin 875 Mg-125 Mg Tab) 1 tab PO BID [facility] PRN Reason: Protocol Last Admin: 12/24/17 17:48 Dose: 1 tab Enoxaparin Sodium (Lovenox) 40 mg SC DAILY [facility] Last Admin: 12/24/17 10:54 Dose: Not Given Famotidine (Pepcid) 20 mg IVP DAILY [facility] Last Admin: 12/24/17 10:54 Dose: 20 mg Fluconazole (Diflucan) 100 mg PO ONCE ONE PRN Reason: Protocol Stop: 12/25/17 10:01 Lactulose (Enulose) 20 gm PO HS [facility] Last Admin: 12/24/17 21:36 Dose: Not Given Methylprednisolone (Solu-Medrol) 60 mg IV Q12 [facility] Last Admin: 12/24/17 21:36 Dose: 60 mg Metoclopramide HCl (Reglan) 10 mg PO AC [facility] Last Admin: 12/24/17 17:49 Dose: 10 mg Montelukast Sodium (Singulair) 10 mg PO HS [facility] Last Admin: 12/24/17 21:36 Dose: 10 mg Oxycodone/Acetaminophen (Percocet 5/325 Mg Tab) 1 tab PO Q6H PRN PRN Reason: Pain, Mild (1-3) Stop: 12/26/17 18:19 Last Admin: 12/24/17 19:37 Dose: 1 tab Promethazine HCl (Phenergan Syrup) 6.25 mg PO Q6 PRN PRN Reason: Cough Last Admin: 12/24/17 21:36 Dose: 6.25 mg Fluticasone/Salmeterol (Advair Diskus 250/50) 1 puff INH RQ12 [facility] Last Admin: 12/24/17 20:20 Dose: 1 puff Senna/Docusate Sodium (Senokot S 50 Mg-8.6 Mg) 1 tab PO BID [facility] Last Admin: 12/24/17 17:49 Dose: Not Given Sucralfate (Carafate Tab) 1 gm PO TIDAC [facility] Last Admin: 12/24/17 17:49 Dose: 1 gm Zolpidem Tartrate (Ambien) 5 mg PO HS PRN PRN Reason: Insomnia Last Admin: 12/23/17 22:44 Dose: 5 mg - Labs Labs: 12/20/17 16:35 12/20/17 16:35 Assessment and Plan (1) Allergic rhinitis Status: Acute (2) Asthma with acute exacerbation Status: Acute (3) Anxiety Status: Chronic (4) Osteoarthritis Status: Chronic
[2017-12-25] MEDS: Albuterol 0.083% Inhal Sol (2.5 mg/3 mL) UD IH SCH ×4 (00:34→11:36)
[2017-12-25] MEDS: Fluticasone-Salmeterol 250-50mcg Diskus INH SCH (07:56)
[2017-12-25 09:01] VITALS: BP 152/75; PULSE 72; TEMP 98.3; O2SAT 100
[2017-12-25] MEDS: Docusate-Senna 50 mg-8.6 mg Tab PO SCH (09:59)
[2017-12-25] MEDS: Amoxicillin-Clav 875-125 mg Tab PO SCH (09:59)
[2017-12-25] MEDS: Enoxaparin 40 mg Syringe SC SCH (10:00)
[2017-12-25] MEDS: Oxycodone/Acetaminophen 5/325 mg Tab PO PRN (10:00)
[2017-12-25] MEDS: Promethazine 6.25 MG/5 ML CUP PO PRN (10:00)
--- NOTE | 2017-12-26 23:20 | CP.PCM.DIS ---
Provider - Provider Date of Admission: 12/22/17 12:04 Attending physician: David Ambrose MD Time Spent in preparation of Discharge (in minutes): 45 Diagnosis - Discharge Diagnosis (1) Allergic rhinitis Status: Acute (2) Asthma with acute exacerbation Status: Acute (3) Anxiety Status: Chronic Priority: Medium (4) Osteoarthritis Status: Chronic Priority: High Hospital Course - Lab Results Lab Results: Micro Results 12/20/17 18:30 Blood Blood Culture - Final NO GROWTH AFTER 5 DAYS 12/20/17 18:30 Blood Gram Stain - Final TEST NOT PERFORMED 12/20/17 18:00 Blood Blood Culture - Final NO GROWTH AFTER 5 DAYS 12/20/17 18:00 Blood Gram Stain - Final TEST NOT PERFORMED Most Recent Lab Values WBC 16.5 K/uL (4.8-10.8) H D 12/20/17 16:35 RBC 4.21 Mil/uL (3.80-5.20) 12/20/17 16:35 Hgb 13.5 g/dL (11.0-16.0) 12/20/17 16:35 Hct 39.8 % (34.0-47.0) 12/20/17 16:35 MCV 94.6 fL (81.0-99.0) 12/20/17 16:35 MCH 32.0 pg (27.0-31.0) H 12/20/17 16:35 MCHC 33.9 g/dL (33.0-37.0) 12/20/17 16:35 RDW 13.6 % (11.5-14.5) 12/20/17 16:35 Plt Count 296 K/uL (130-400) D 12/20/17 16:35 MPV 7.7 fL (7.2-11.7) 12/20/17 16:35 Neut % (Auto) 82.4 % (50.0-75.0) H 12/20/17 16:35 Lymph % (Auto) 13.7 % (20.0-40.0) L 12/20/17 16:35 [place] % (Auto) 3.6 % (0.0-10.0) 12/20/17 16:35 Eos % (Auto) 0.0 % (0.0-4.0) 12/20/17 16:35 Baso % (Auto) 0.3 % (0.0-2.0) 12/20/17 16:35 Neut # (Auto) 13.6 K/uL (1.8-7.0) H 12/20/17 16:35 Lymph # (Auto) 2.3 K/uL (1.0-4.3) 12/20/17 16:35 [place] # (Auto) 0.6 K/uL (0.0-0.8) 12/20/17 16:35 Eos # (Auto) 0.0 K/uL (0.0-0.7) 12/20/17 16:35 Baso # (Auto) 0.0 K/uL (0.0-0.2) 12/20/17 16:35 Sodium 143 mmol/L (132-148) 12/20/17 16:35 Potassium 3.9 mmol/L (3.6-5.2) 12/20/17 16:35 Chloride 109 mmol/L (98-107) H 12/20/17 16:35 Carbon Dioxide 22 mmol/L (22-30) 12/20/17 16:35 Anion Gap 16 (10-20) 12/20/17 16:35 BUN 13 mg/dL (7-17) 12/20/17 16:35 Creatinine 0.9 mg/dL (0.7-1.2) 12/20/17 16:35 Est GFR ( Amer) > 60 12/20/17 16:35 Est GFR (Non-Af Amer) > 60 12/20/17 16:35 Random Glucose 113 mg/dL (65-105) H 12/20/17 16:35 Calcium 9.3 mg/dl (8.6-10.4) 12/20/17 16:35 Total Bilirubin 0.5 mg/dL (0.2-1.3) 12/20/17 16:35 AST 14 U/L (14-36) D 12/20/17 16:35 ALT 26 U/L (9-52) 12/20/17 16:35 Alkaline Phosphatase 74 U/L (38-126) 12/20/17 16:35 Troponin I < 0.0120 ng/mL (0.00-0.120) 12/20/17 16:35 NT-Pro-B Natriuret Pep 337 pg/mL (0-450) 12/20/17 16:35 Total Protein 6.9 g/dL (6.3-8.3) 12/20/17 16:35 Albumin 4.1 g/dL (3.5-5.0) 12/20/17 16:35 Globulin 2.7 gm/dL (2.2-3.9) 12/20/17 16:35 Albumin/Globulin Ratio 1.5 (1.0-2.1) 12/20/17 16:35 Urine Color Yellow (YELLOW) 12/20/17 19:10 Urine Clarity Hazy (Clear) 12/20/17 19:10 Urine pH 5.0 (5.0-8.0) 12/20/17 19:10 Ur Specific [place] 1.019 (1.003-1.030) 12/20/17 19:10 Urine Protein Negative mg/dL (NEGATIVE) 12/20/17 19:10 Urine Glucose (UA) Normal mg/dL (Normal) 12/20/17 19:10 Urine Ketones Negative mg/dL (NEGATIVE) 12/20/17 19:10 Urine Blood 2+ (NEGATIVE) H 12/20/17 19:10 Urine Nitrate Negative (NEGATIVE) 12/20/17 19:10 Urine Bilirubin Negative (NEGATIVE) 12/20/17 19:10 Urine Urobilinogen Normal mg/dL (0.2-1.0) 12/20/17 19:10 Ur Leukocyte Esterase Neg [place]/uL (Negative) 12/20/17 19:10 Urine WBC (Auto) 1 /hpf (0-5) 12/20/17 19:10 Urine RBC (Auto) 6 /hpf (0-3) H 12/20/17 19:10 Ur Squamous Epith Cells 10 /hpf (0-5) H 12/20/17 19:10 Urine Bacteria Rare (<OCC) 12/20/17 19:10 Urine HCG, Qual Negative (NEGATIVE) 12/20/17 19:10 - Hospital Course Hospital Course: Pt was discharged today, less short of breath,, less cough, feeling better Discharge Exam - Head Exam Head Exam: ATRAUMATIC, NORMAL INSPECTION, NORMOCEPHALIC - Eye Exam Eye Exam: EOMI, Normal appearance, PERRL Pupil Exam: NORMAL ACCOMODATION, PERRL - ENT Exam ENT Exam: Mucous Membranes Moist - Respiratory Exam Respiratory Exam: Clear to PA & Lateral, NORMAL BREATHING PATTERN - Cardiovascular Exam Cardiovascular Exam: REGULAR RHYTHM, +S1, +S2 - GI/Abdominal Exam GI & Abdominal Exam: Normal Bowel Sounds Discharge Plan - Follow Up Plan Condition: STABLE Disposition: HOME/ ROUTINE Instructions: Asthma, Adult (DC), Chronic Pain (DC), Shortness of Breath ( Dyspnea) (DC), Avoiding Asthma Triggers, Hip Pain (DC), Amoxicillin and Clavulanate, Prednisone Additional Instructions: -FOLLOW UP WITH DR. AMBROSE IN HIS OFFICE WITHIN 5-7 DAYS---CALL THE OFFICE TO MAKE AN APPOINTMENT TIME. -CONTINUE ALL MEDICATIONS AT HOME USUAL. -CONTINUE TAKING THE NEW MEDICATIONS THAT DR. AMBROSE PRESCRIBED TO YOU LAST WEEK (STEROIDS, COUGH MEDICINE, AND ORAL ANTIBIOTICS). -IF YOU HAVE ANY QUESTIONS OR CONCERNS, CONTACT DR. AMBROSE. -CALL DR. CASTANEDA'S OFFICE FOR APPOINTMENT. Referrals: Andres Castaneda MD [Staff Provider] - David Ambrose MD [Staff Provider] -
--- NOTE | 2017-12-27 21:08 | PQF ---
PROVIDER RESPONSE TEXT: Moderate persistent REVIEWER QUERY TEXT: Asthma Specificity and Type Asthma is documented in the Medical Record. Please specify the type and severity of asthma and indic ate if this is associated with exacerbation or status asthmaticus. Such as: -- Mild intermittent -- Mild persistent -- Moderate persistent -- Severe persistent -- Exercise induced bronchospasm -- Cough variant asthma -- Other, please specify The patient's Clinical Indicators include: 47 Y O F : CC: cough, shortness of breath wheezing x 1 week h/o bronchial asthma Admitted with Asthma with acute exacerbation Meds: IV Solumedrol, Augmentin, Singulair, Advair diskus, Nebulizer with Albuterol Query created by: Heidi Henley on 12/22/2017 1:29 PM Electronically signed by: David Ambrose MD 12/27/2017 9:04 PM
== END 2017-12-25 13:14 | disposition home or self-care (01) | DRG 203 ==
LOC: C.ER 15:53 → C.9E 18:27 → C.6T 19:04 → OBSVTOIN 12-22 12:04
PROVIDERS: ADMIT Internal Medicine; ATTEND Internal Medicine
DX: J45.901 Unspecified asthma with (acute) exacerbation (principal); I10 Essential (primary) hypertension; F41.9 Anxiety disorder, unspecified; M19.90 Unspecified osteoarthritis, unspecified site; F17.210 Nicotine dependence, cigarettes, uncomplicated